=== PATIENT | male | born 1935 | race Caucasian/White ===

== ENCOUNTER → 2017-03-11 | Day surgery (SDC) | payer OTHER ==
[2017-03-09 14:05] VITALS: Ht 165.1 cm; Wt 71.8 kg
[~2017-03-11] VITALS: Ht 165.1 cm; Wt 71.8 kg
[~2017-03-11] MED LIST: ASPI81TA28 PO; CHOL1000 PO; CITA20TA4 PO; DILT1TAB62 PO; LEVO50TA6 PO; LIDOCAINE HCL 2% 2 ML VIAL (20MG/ML) ONE; MAGN250T3 PO; METF-384 PO; OMEG10007 PO; ONDANSETRON INJ 2 MG/ML 2 ML VIAL IV PRN; PROPOFOL IV EMULSION 10 MG/ML 20 ML VIAL IV ONE; SIMV20TA2 PO; SODIUM CHLORIDE 0.9% 500ML 500 ML IV ONE; TAMS0.4C38 PO
--- NOTE | 2017-03-11 10:38 | Endo History and Physical ---
History & Physical Date of Service: Mar 11, 2017. Chief Complaint: Difficulty swallowing Referring Physician: DR UMANZOR History of Present Illness 81-year-old male referred for evaluation of difficulty swallowing. The patient describes having intermittent difficulty with swallowing solids. The symptoms have been progressing over the last 2-3 years. He is never had an upper endoscopy before. Past Surgical History Hx Cardiac Surgery: No Hx Internal Defibrillator: No Hx Pacemaker: No Hx Abdominal Surgery: Yes (APPY) Hx of Implantable Prosthesis: No Hx Post-Op Nausea and Vomiting: No Hx Cancer Surgery: No Hx Thoracic Surgery: No Hx Orthopedic: No Hx Urinary Tract Surgery: Yes (CIRCUMCISION) Family History None Social History Smoking Status: Former Smoker Hx Substance Use: No Hx Alcohol Use: Yes (OCCASIONAL) Allergies Coded Allergies: Penicillins (Verified Allergy, Unknown, HAND SWELLING, 03/11/17) Current Medications Reported Home Medications Medications Dose Route/Sig Max Daily Dose Days Date Category Dose Instructions Aspirin Ec (Aspirin) 81 Mg Tab 81 Mg PO QAM 03/09/17 Reported Vitamin D3 (Cholecalciferol) 1,000 Unit Tab 1 Tab PO QPM 03/09/17 Reported [place]-3 (Fish Oil) 1 Ea Cap 1 Cap PO QAM 03/09/17 Reported Magnesium 250 mg (Magnesium) 1 Tab Tab 1 Tab PO QAM 03/09/17 Reported Citalopram Hydrobromide 20 Mg Tab 1 Tab PO QPM 03/09/17 Reported Diltiazem HCl 60 Mg Tab 1 Tab PO TID 03/09/17 Reported Levothyroxine Sodium 50 Mcg Tab 1 Tab PO 5XWK 03/09/17 Reported MON,TUES,WED,TH,FRI Levothyroxine Sodium 50 Mcg Tab 2 Tabs PO 2XWK 03/09/17 Reported SUN,SAT Zocor (Simvastatin) 20 Mg Tab 0.5 Tab PO QPM 03/09/17 Reported Glucophage (Metformin Hcl) 1,000 Mg Tab 1,000 Mg PO BID 03/09/17 Reported Flomax (Tamsulosin Hcl) 0.4 Mg Cap 0.4 Mg PO QAM 03/09/17 Reported Vital Signs Weight (Kilograms): 71.82 Height (Feet): 5 Height (Inches): 5 Date Time Temp Pulse Resp B/P (MAP) Pulse Ox O2 Delivery O2 Flow Rate FiO2 03/11/17 10:18 36.1 75 20 140/78 (98) 96 Room Air Physical Exam General Appearance: no apparent distress Respiratory/Chest: Auscultation: breath sounds normal Cardiovascular: Heart Auscultation: RRR, murmur Abdomen: Inspection & Palpation: soft Assessment and Plan The patient has a history of solid food dysphagia which is been progressing over the last 2 years. Given the intermittent nature this most likely represents a benign lesion such as a Schatzki's ring. We discussed the risks and benefits to include bleeding, infection, perforation, pain and need for follow-up studies. Plan Upper endoscopy with esophageal dilation
--- NOTE | 2017-03-11 10:59 | Discharge Instructions ---
Endoscopy Patient Instructions Date / Procedure(s) Performed Mar 11, 2017. EGD Allergy Information Coded Allergies: Penicillins (Verified Allergy, Unknown, HAND SWELLING, 03/11/17) Discharge Date / Findings Mar 11, 2017. Esophageal ring (dilated) Medication Instructions Reported Home Medications Medications Dose Route/Sig Max Daily Dose Days Date Category Dose Instructions Aspirin Ec (Aspirin) 81 Mg Tab 81 Mg PO QAM 03/09/17 Reported Vitamin D3 (Cholecalciferol) 1,000 Unit Tab 1 Tab PO QPM 03/09/17 Reported [place]-3 (Fish Oil) 1 Ea Cap 1 Cap PO QAM 03/09/17 Reported Magnesium 250 mg (Magnesium) 1 Tab Tab 1 Tab PO QAM 03/09/17 Reported Citalopram Hydrobromide 20 Mg Tab 1 Tab PO QPM 03/09/17 Reported Diltiazem HCl 60 Mg Tab 1 Tab PO TID 03/09/17 Reported Levothyroxine Sodium 50 Mcg Tab 1 Tab PO 5XWK 03/09/17 Reported MON,TU,WED,,FRI Levothyroxine Sodium 50 Mcg Tab 2 Tabs PO 2XWK 03/09/17 Reported SUN,SAT Zocor (Simvastatin) 20 Mg Tab 0.5 Tab PO QPM 03/09/17 Reported Glucophage (Metformin Hcl) 1,000 Mg Tab 1,000 Mg PO BID 03/09/17 Reported Flomax (Tamsulosin Hcl) 0.4 Mg Cap 0.4 Mg PO QAM 03/09/17 Reported Provider Instructions Activity Restrictions - No exercising or heavy lifting for 24 hours. - Do not drink alcohol the day of the procedure. - Do not drive a car or operate machinery until the day after the procedure. - Do not make any important decisions or sign important papers in 24 hours after the procedure. Following Day: - Return to full activity which may include returning to work/school. Diet Start your diet with liquids and light foods (jello, soup, juice, toast). Then eat your usual diet if not nauseated. Treatment For Common After Affects For mild abdominal pain, bloating, or excessive gas: - Rest - Eat lightly - Lie on right side Follow-Up Information Follow-up with DR UMANZOR as scheduled Follow-up with Gastroenterology as needed Anesthesia Information What You Should Know You have had a procedure that required some medicine to reduce anxiety and discomfort. This treatment is called moderate sedation. After receiving the treatment, you may be sleepy, but you will be able to breathe on your own. The effects of the treatment may last for several hours. Follow these instructions along with Activity/Diet recommendations noted above: * Do NOT do anything where dizziness or clumsiness would be dangerous. * Rest quietly at home today, then you can be up and about tomorrow. * Have a responsible person stay with you the rest of today. * You may have had an I.V. today. If so, you may take the dressing off later today. Recommendations Call your doctor if: * Trouble breathing * Continuous vomiting for more than 24 hours * Temperature above 101 degrees * Severe abdominal pain or bloating * Pain not relieved by pain medicine ordered * There is increased drainage or redness from any incision * A large amount of rectal bleeding greater than 2-3 tablespoons. (If you had a polyp/s removed or have hemorrhoids, a small amount of blood - from the rectum is to be expected.) * You have any unanswered questions or concerns. IN THE EVENT OF A SERIOUS EMERGENCY, GO TO THE NEAREST EMERGENCY ROOM Your discharge instructions were prepared by provider Joceline Romeo. Patient Instructions Signature Page Waldemar Gunter Patient (or Guardian) Signature/Date: I have read and understand the instructions given to me by my caregivers. Caregiver/RN/Doctor Signature/Date: The above-named patient and/or guardian has received patient instructions on this date. + Original Patient Signature Page (only) stays with chart. Please make copy for patient.
--- NOTE | 2017-03-11 11:03 | GI REPORT ---
Procedure Date: 03/11/2017 10:38 AM Procedure: Upper GI endoscopy Indications: Dysphagia Medicines: Monitored Anesthesia Care Complications: No immediate complications. Estimated blood loss: Minimal. Estimated Blood Loss: Estimated blood loss was minimal. Procedure: Pre-Anesthesia Assessment: - Prior to the procedure, a History and Physical was performed, and patient medications, allergies and sensitivities were reviewed. The patient's tolerance of previous anesthesia was reviewed. - The risks and benefits of the procedure and the sedation options and risks were discussed with the patient. All questions were answered and informed consent was obtained. - Patient identification and proposed procedure were verified prior to the procedure by the physician, the nurse and the bilingual interpreter. The procedure was verified in the procedure room. - Pre-procedure physical examination revealed no contraindications to sedation. - ASA Grade Assessment: III - A patient with severe systemic disease. - After reviewing the risks and benefits, the patient was deemed in satisfactory condition to undergo the procedure. - The anesthesia plan was to use monitored anesthesia care (MAC). - Immediately prior to administration of medications, the patient was re-assessed for adequacy to receive sedatives. - The heart rate, respiratory rate, oxygen saturations, blood pressure, adequacy of pulmonary ventilation, and response to care were monitored throughout the procedure. - The physical status of the patient was re-assessed after the procedure. After obtaining informed consent, the endoscope was passed under direct vision. Throughout the procedure, the patient's blood pressure, pulse, and oxygen saturations were monitored continuously. The scope was introduced through the mouth, and advanced to the third part of duodenum. The upper GI endoscopy was accomplished without difficulty. The patient tolerated the procedure well. Findings: A mild Schatzki ring (acquired) was found at the gastroesophageal junction. A guidewire was placed and the scope was withdrawn. Dilation was performed with a Savary dilator with mild resistance at 54 Fr. The endoscope was then reinserted to evaluate the success of the procedure. Estimated blood loss was minimal. The entire examined stomach was normal. The examined duodenum was normal. Impression: - Mild Schatzki ring. Dilated to 54 Fr today. - Normal stomach. - Normal examined duodenum. - No specimens collected. Recommendation: - Discharge patient to home (ambulatory). - Advance diet as tolerated today. Joceline Romeo D.O. Joceline Romeo DO 03/11/2017 11:03:01 AM This report has been signed electronically. Note Initiated On: 03/11/2017 10:38 AM I attest to the content of the Intraoperative Record and orders documented therein, exceptions below
[2017-03-11 11:42] VITALS: BP 130/69; PULSE 68; O2SAT 96
--- NOTE | 2017-03-11 12:30 | Anesthesiology Progress Note ---
Anesthesia Post Op Note Date & Time Mar 11, 2017 at 12:30 Vital Signs Pain Intensity: 0 Vital Signs Past 12 Hours Date Time Temp Pulse Resp B/P (MAP) Pulse Ox O2 Delivery O2 Flow Rate FiO2 03/11/17 11:42 68 20 130/69 (89) 96 Room Air 03/11/17 11:25 67 20 107/49 (68) 95 Room Air 03/11/17 11:06 58 20 89/49 (62) 99 Diffusion Mask 10 03/11/17 10:18 36.1 75 20 140/78 (98) 96 Room Air Notes Mental Status: alert / awake / arousable, participated in evaluation Pt Amnestic to Procedure: Yes Nausea / Vomiting: adequately controlled Pain: adequately controlled Airway Patency, RR, SpO2: stable & adequate BP & HR: stable & adequate Hydration State: stable & adequate Anesthetic Complications: no major complications apparent
== END | disposition home or self-care (01) ==
LOC: C.GI 09:43
PROVIDERS: ATTEND Internal Medicine Gastroenterology
DX: K22.2 Esophageal obstruction (principal); R13.10 Dysphagia, unspecified; Z87.891 Personal history of nicotine dependence; Z79.82 Long term (current) use of aspirin; Z79.899 Other long term (current) drug therapy

== ENCOUNTER 2018-10-09 23:31 | Inpatient (IN) ==
[2018-10-09] MEDS ORDERED: ACETAMINOPHEN 500 MG TAB PO STA (23:52)
[2018-10-09] MEDS ORDERED: ALBUT/IPRATROP 3MG/0.5MG NEB 3 ML VIAL ONE (23:54)
[2018-10-10] MEDS ORDERED: ALBUT/IPRATROP 3MG/0.5MG NEB 3 ML VIAL NEB STA (00:06)
[2018-10-10 00:08] LABS: Basophils # (auto) 0.02 K/uL (0-0.2); Basophils % (auto) 0.2 %; Eosinophils # (auto) 0.02 K/uL (0-0.5); Eosinophils % (auto) 0.2 %; Hematocrit (blood only) 39.3 % (42-52); Immature Granulocytes # (auto) 0.01 K/uL (0.00-0.02); Immature Granulocytes % (auto) 0.1 %; Lymphocytes # (auto) 1.07 K/uL (1.2-3.4); Lymphocytes % (auto) 11.6 %; Mean Corpuscular Hgb Conc 33.1 g/dL (32-36); Mean Corpuscular Volume 95.4 fL (80-100); Mean Platelet Volume 9.6 fL (7.4-10.4); Monocytes # (auto) 0.94 K/uL (0.11-0.59); Monocytes % (auto) 10.2 %; Neutrophils # (auto) 7.15 K/uL (1.4-6.5); Neutrophils % (auto) 77.7 %; Platelet Count 179 K/uL (130-400); RDW Coefficient of Variation 14.6 % (11.5-14.5); RDW Standard Deviation 50.9 fL (36.4-46.3); Red Blood Count 4.12 M/uL (4.7-6.1); White Blood Count 9.21 K/uL (4.8-10.8)
[2018-10-10 00:25] LABS: Alanine Aminotransferase 28 U/L (12-78); Albumin Level 3.2 gm/dl (3.4-5.0); Aspartate Aminotransferase 25 U/L (15-37); BUN Creatinine Ratio 14.2 (10-20); Blood Urea Nitrogen 19 mg/dl (7-18); Calcium 8.4 mg/dl (8.5-10.1); Carbon Dioxide 26 mmol/L (21-32); Chloride 104 mmol/L (98-107); Creatinine Clr Calc Pharmacy 36.9 ml/min; Est GFR (African American) 56.6; Est GFR (Non-African American) 48.8; Glucose 200 mg/dl (70-99); Potassium 4.3 mmol/L (3.5-5.1); Sodium 136 mmol/L (136-145)
[2018-10-10 00:29] LABS: Albumin Globulin Ratio 0.7 (0.9-2); Alkaline Phosphatase 76 U/L (45-117); Bilirubin,Total 0.9 mg/dl (0.2-1); Globulin 4.7 gm/dl (2.5-4.0); NT Pro B Type Natriuretic Pept 209 pg/ml (0-1800); Total Protein 7.9 gm/dl (6.4-8.2); Troponin I < 0.015 ng/ml (0-0.045)
[2018-10-10] MEDS ORDERED: LEVOFLOXACIN/D5W 750 MG/150 ML BAG IV STA (00:41)
[2018-10-10] MEDS ORDERED: AZTREONAM 1,000 MG in DEXTROSE 5% 100 ML IV STA (00:41)
[2018-10-10] MEDS ORDERED: SODIUM CHLORIDE 0.9% 1000ML 1,000 ML IV ONE ×3 (00:48→09:44)
[2018-10-10 00:52] LABS: Appearance Urine Turbid (Clear); Bacteria Urine Automated Negative (Negative); Bilirubin Urine Negative (Negative); Blood Urine 2+ (Negative); Color Urine Yellow; Epithelial Cell Urine Auto 20-30 /lpf (0-5); Glucose Urine UA Trace (Negative); Ketones Urine 1+ (Negative); Leukocyte Esterase Urine 2+ (Negative); Nitrite Urine Negative (Negative); Protein Urine 2+ (Negative); Specific Gravity Urine 1.025 (1.000-1.030); Urobilinogen Urine Negative (Negative); WBC Urine Automated >30 /hpf (0-5)
[2018-10-10] MEDS ORDERED: SODIUM CHLORIDE 0.9% 500 ML IV ONE (01:19)
[2018-10-10] MEDS ORDERED: SODIUM CHLORIDE 0.9% 1000ML 1,000 ML IV SCH ×2 (01:30→08:00)
[2018-10-10 02:06] LABS: Magnesium 1.6 mg/dl (1.8-2.4)
--- NOTE | 2018-10-10 02:09 | History & Physical Report ---
Date of Service October 10, 2018 Assessment & Plan (1) Sepsis: Severe sepsis SIRS plus lactic acid elevation secondary to complicated UTI, history of BPH viral bronchitis rule out flu Aspiration risk hx Schatzki's ring status post dilatation/presbyesophagus as per records hypertension, stable hypothyroidism, euthyroid as of today's TSH DM 2 on oral meds, well controlled as of recent outpatient hemoglobin A1c of 6.18 May 2018 chronic anemia, hemoglobin at baseline, outpatient workup showed vitamin B12 deficiency Bilateral leg swelling rule out DVT Past tobacco abuse Medical Cultures, IV Cefepime, add Vancomycin if with progression of lactic acidosis Follow lactic acid, IVF LE venous Doppler ro DVT Flu PCR Aspiration precautions, swallow eval karel insulin, ISS BG goal 140-180, update hemoglobin A1c PT OT eval DVT prophylaxis. Lovenox subcu Full code History of Present Illness Chief Complaint: Cough, shortness of breath Primary Care Provider: Lashay Terry DO History obtained from patient, family, and records. Medical history significant for hypertension, hyperlipidemia, hypothyroidism, PVD as per records, DM 2 on oral meds, chronic anemia baseline hemoglobin of 13, history Schatzki's ring/presbyesophagus, BPH, past tobacco abuse. Patient noted sinus congestion symptoms later productive of clear sputum. Patient denies chest pain. Patient noted worsening shortness of breath on exertion. Expiratory wheezing as per patient's son who is a respiratory therapist. Some chills at home. Occasional coughing with meals and water intake. Patient not sure about sick contacts. Recent also mentions dysuria symptoms without abdominal pain. No hematuria. Patient had a mechanical fall at home today due to generalized weakness. On and off bilateral leg swelling prior to illness. Patient receive Levaquin and Azactam at the ER for sepsis. Medical History as above Surgical History : Circumcision, appendectomy Family History : Diabetes, uterine cancer Personal/Social history : Past tobacco abuse, occasional EtOH intake, retired [employer] Allergies Allergy/AdvReac Type Severity Reaction Status Date / Time Penicillins Allergy Unknown HAND Verified 03/11/17 10:04 SWELLING Home Medications Home Medications Medication Instructions Recorded Confirmed Type diltiazem HCl 60 mg PO TID 10/10/18 10/10/18 History levothyroxine 50 mcg PO 5XWK 10/10/18 10/10/18 History levothyroxine 100 mcg PO 2XWK 10/10/18 10/10/18 History metformin 1,000 mg PO BID 10/10/18 10/10/18 History simvastatin 10 mg PO PM 10/10/18 10/10/18 History tamsulosin 0.4 mg PO DAILY 10/10/18 10/10/18 History Past Med/Surg History Medical History Diabetes (Chronic) Leg swelling (Chronic) Family History Other No significant family history Social History Preferred Language: Trinidadian Communication Ability: Effective Piece Jobber Required: No Beliefs That Will Affect Care: None Current Living Situation: Spouse Feels Safe at Home: Yes Safety Concerns: Feels Safe At This Time Smoking Status: Former smoker Hx Alcohol Use: No Hx Substance Use: No Review of Systems As per HPI, all 10 systems reviewed, all other ROS negative Physical Exam Vital Signs (Past 24 Hours): Last Vital Signs Temp 38.4 C H 10/09/18 23:35 Pulse 112 H 10/10/18 01:05 Resp 19 10/10/18 01:05 BP 119/76 10/10/18 01:05 Pulse Ox 94 10/10/18 00:40 Physical Exam: GENERAL: Slightly uncomfortable, wane, slightly hard of hearing, no respiratory distress SKIN: Pallor , warm HEENT: Bespectacled, pale palpebral conjunctivae, no ptosis, dry buccal mucosa NECK : Supple, no tenderness CHEST : Decreased breath sounds, occasional expiratory wheeze, no tenderness HEART : Tachycardic , no obvious murmurs ABDOMEN: Some distention, nontender EXTREMITIES : brandon LE swelling R> L, no LE tenderness, no other conspicuous deformities noted NEUROLOGIC : Coherent, no facial asymmetry, no other gross focality except for mild impairment, gait and stance not assessed Results & Data Laboratory Results Laboratory Results WBC 9.21 K/uL (4.8-10.8) 10/09/18 23:52 RBC 4.12 M/uL (4.7-6.1) L 10/09/18 23:52 Hgb 13.0 g/dL (14.0-18.0) L 10/09/18 23:52 Hct 39.3 % (42-52) L 10/09/18 23:52 MCV 95.4 fL (80-100) 10/09/18 23:52 MCH 31.6 pg (25-34) 10/09/18 23:52 MCHC 33.1 g/dL (32-36) 10/09/18 23:52 RDW Std Deviation 50.9 fL (36.4-46.3) H 10/09/18 23:52 RDW Coeff of Rosario 14.6 % (11.5-14.5) H 10/09/18 23:52 Plt Count 179 K/uL (130-400) 10/09/18 23:52 MPV 9.6 fL (7.4-10.4) 10/09/18 23:52 Immature Gran % (Auto) 0.1 % 10/09/18 23:52 Neut % (Auto) 77.7 % 10/09/18 23:52 Lymph % (Auto) 11.6 % 10/09/18 23:52 [place] % (Auto) 10.2 % 10/09/18 23:52 Eos % (Auto) 0.2 % 10/09/18 23:52 Baso % (Auto) 0.2 % 10/09/18 23:52 Immature Gran # (Auto) 0.01 K/uL (0.00-0.02) 10/09/18 23:52 Neut # (Auto) 7.15 K/uL (1.4-6.5) H 10/09/18 23:52 Lymph # (Auto) 1.07 K/uL (1.2-3.4) L 10/09/18 23:52 [place] # (Auto) 0.94 K/uL (0.11-0.59) H 10/09/18 23:52 Eos # (Auto) 0.02 K/uL (0-0.5) 10/09/18 23:52 Baso # (Auto) 0.02 K/uL (0-0.2) 10/09/18 23:52 PT Cancelled 10/09/18 23:52 INR Cancelled 10/09/18 23:52 APTT Cancelled 10/09/18 23:52 PTT Ratio Cancelled 10/09/18 23:52 Sodium 136 mmol/L (136-145) 10/09/18 23:52 Potassium 4.3 mmol/L (3.5-5.1) 10/09/18 23:52 Chloride 104 mmol/L (98-107) 10/09/18 23:52 Carbon Dioxide 26 mmol/L (21-32) 10/09/18 23:52 Anion Gap 6.0 (3-11) 10/09/18 23:52 BUN 19 mg/dl (7-18) H 10/09/18 23:52 Creatinine 1.32 mg/dl (0.6-1.4) 10/09/18 23:52 Est Cr Clr Drug Dosing 36.9 ml/min 10/09/18 23:52 Est GFR ( Amer) 56.6 10/09/18 23:52 Est GFR (Non-Af Amer) 48.8 10/09/18 23:52 BUN/Creatinine Ratio 14.2 (10-20) 10/09/18 23:52 Glucose 200 mg/dl (70-99) H 10/09/18 23:52 POC Lactic Acid Matthew 2.39 mmol/L (0.90-1.70) H 10/09/18 23:56 Calcium 8.4 mg/dl (8.5-10.1) L 10/09/18 23:52 Magnesium 1.6 mg/dl (1.8-2.4) L 10/09/18 23:52 Total Bilirubin 0.9 mg/dl (0.2-1) 10/09/18 23:52 AST 25 U/L (15-37) 10/09/18 23:52 ALT 28 U/L (12-78) 10/09/18 23:52 Alkaline Phosphatase 76 U/L (45-117) 10/09/18 23:52 Troponin I < 0.015 ng/ml (0-0.045) 10/09/18 23:52 NT-Pro-B Natriuret Pep 209 pg/ml (0-1800) 10/09/18 23:52 Total Protein 7.9 gm/dl (6.4-8.2) 10/09/18 23:52 Albumin 3.2 gm/dl (3.4-5.0) L 10/09/18 23:52 Globulin 4.7 gm/dl (2.5-4.0) H 10/09/18 23:52 Albumin/Globulin Ratio 0.7 (0.9-2) L 10/09/18 23:52 TSH 1.950 uIu/ml (0.300-4.500) 10/09/18 23:52 Urine Color Yellow 10/10/18 00:10 Urine Appearance Turbid (Clear) H 10/10/18 00:10 Urine pH 5.0 (4.5-7.5) 10/10/18 00:10 Ur Specific [place] 1.025 (1.000-1.030) 10/10/18 00:10 Urine Protein 2+ (Negative) H 10/10/18 00:10 Urine Glucose (UA) Trace (Negative) H 10/10/18 00:10 Urine Ketones 1+ (Negative) H 10/10/18 00:10 Urine Blood 2+ (Negative) H 10/10/18 00:10 Urine Nitrite Negative (Negative) 10/10/18 00:10 Urine Bilirubin Negative (Negative) 10/10/18 00:10 Urine Urobilinogen Negative (Negative) 10/10/18 00:10 Ur Leukocyte Esterase 2+ (Negative) H 10/10/18 00:10 Urine WBC (Auto) >30 /hpf (0-5) H 10/10/18 00:10 Urine RBC (Auto) 5-10 /hpf (0-4) H 10/10/18 00:10 U Hyaline Cast (Auto) 1-5 /lpf (0-5) 10/10/18 00:10 U Epithel Cells (Auto) 20-30 /lpf (0-5) H 10/10/18 00:10 Urine Bacteria (Auto) Negative (Negative) 10/10/18 00:10 Influenza Type A Ag Neg for Influ A (Neg) 10/10/18 00:10 Influenza Type B Ag Neg for Influ B (Neg) 10/10/18 00:10 Diagnostic Findings Chest x-ray per my interpretation atelectasis EKG as per my interpretation : Rate 115, sinus tachycardia, T wave flattening septal leads (1) Sepsis Sepsis type: sepsis due to unspecified organism Qualified Code(s): A41.9 - Sepsis, unspecified organism
[2018-10-10] MEDS ORDERED: SODIUM CHLORIDE 0.9% 1000ML 1,000 ML IV STA (02:11)
[2018-10-10] MEDS ORDERED: MAGNESIUM SULFATE / D5W 1 GM/100 ML BAG IV ONE (02:11)
[2018-10-10] MEDS ORDERED: DOXYCYCLINE HYCLATE 100 MG in DEXTROSE 5% 100 ML IV STA (02:11)
[2018-10-10] MEDS ORDERED: XOPENEX/ATROVENT 1.25mg/0.5MG NEB COMBO NEB PRN (02:11)
[2018-10-10] MEDS ORDERED: GLUCOSE 40% GEL 15 GM TUBE PO PRN (02:13)
[2018-10-10] MEDS ORDERED: GLUCAGON FOR INJ 1 MG VIAL SQ PRN (02:13)
[2018-10-10] MEDS ORDERED: PROCHLORPERAZINE 5 MG in SYRINGE 4 ML IV PRN (02:13)
[2018-10-10] MEDS ORDERED: ACETAMINOPHEN 325 MG TAB PO PRN (02:13)
[2018-10-10] MEDS ORDERED: INSULIN GLARGINE SOLOSTAR 100 UNITS/ML 3 ML PEN SQ STA (02:13)
[2018-10-10] MEDS ORDERED: DEXTROSE 50% 50 ML SYRINGE IV PRN (02:13)
[2018-10-10] MEDS ORDERED: GLUCOSE 10 TABS/TUBE PO PRN (02:13)
[2018-10-10] MEDS ORDERED: CARBOHYDRATES FOR HYPOGLYCEMIA PO PRN (02:13)
[2018-10-10 02:23] LABS: Influenza A virus by PCR Neg for Influ A (Neg); Influenza B virus by PCR Neg for Influ B (Neg)
[2018-10-10 02:33] LABS: Partial Thromboplastin Ratio 1.1; Partial Thromboplastin Time 28.5 Seconds (21.0-31.0)
[2018-10-10] MEDS: INSULIN ASPART 100 UNITS/ML 3 ML PEN SC SCH ×4 (05:17→18:24)
--- NOTE | 2018-10-10 05:37 | Emergency Department Note ---
Entered by Ilan Andre acting as a scribe for Kimberlyn Bolanos DO History of Present Illness General Chief complaint: Shortness of Breath/Dyspnea Stated complaint: SOB,FALL Time Seen by Provider: 10/09/18 23:36 Source: patient and family (son) History of Present Illness Onset (ago): day(s) 1 Location: chest (shortness of breath) Pain Consistency: + other (worsening) Exacerbated By: + other (exertion) Associated symptoms: + denies other symptoms (abdominal pain), + cough (productive cough with mucous), + fever/chills (positive fever, negative chills) and + other (tiredness, frequent urination); no chest pain The patient is a 83 year old M who presents to the Emergency Room with complaints of worsening shortness of breath starting 1 day ago. The majority of the HPI was provided by the patients son. He states that the patient suffered a fall yesterday. He adds that the patients shortness of breath gets worse with exertion. He notes that the patient has not drank much water today The patient notes that he currently has a productive cough with mucous, fever, tiredness, and frequent urination. The patient denies having chest pain and abdominal pain. The patient adds that he took NyQuil for his fever. The patient states that he has a history of diabetes, leg swelling, and being a former smoker. The patient notes that he takes pills for his leg swelling and diabetes. The patient denies a history of a urinary infection. Home Medications Home Medications Medication Instructions Recorded Confirmed Type diltiazem HCl 60 mg PO TID 10/10/18 10/10/18 History levothyroxine 50 mcg PO 5XWK 10/10/18 10/10/18 History levothyroxine 100 mcg PO 2XWK 10/10/18 10/10/18 History metformin 1,000 mg PO BID 10/10/18 10/10/18 History simvastatin 10 mg PO PM 10/10/18 10/10/18 History tamsulosin 0.4 mg PO DAILY 10/10/18 10/10/18 History Allergies Allergy/AdvReac Type Severity Reaction Status Date / Time Penicillins Allergy Unknown HAND Verified 03/11/17 10:04 SWELLING Past Med/Surg History Medical History Diabetes (Chronic) Leg swelling (Chronic) Family History Other No significant family history Social History Preferred Language: French Communication Ability: Effective 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 and A total of 10 systems reviewed and were otherwise negative Physical Exam Vital Signs Vital Signs - 24 hr 10/09/18 23:35 10/09/18 23:38 10/09/18 23:48 Temperature 38.4 C H Temperature Source Oral Sepsis Recent Fever Within 48 Hours Yes Sepsis Action Taken by Nursing No Action Required Pulse Rate 127 H 118 H Pulse Rate [Left Radial] Pulse Rate from SpO2 Sensor 119 H Pulse Rhythm [Left Radial] Pulse Strength [Left Radial] Respiratory Rate 20 18 Respiratory Effort / Characteristics Non-Labored Spontaneous Respiratory Depth Normal Respiratory Pattern Regular Blood Pressure 163/95 H 163/95 H Blood Pressure [Left Arm] Blood Pressure Mean 117 117 Blood Pressure Mean [Left Arm] Blood Pressure Position Sitting Blood Pressure Position [Left Arm] Pulse Oximetry 91 91 Oxygen Delivery Method Room Air Room Air Oxygen Flow Rate 10/10/18 00:00 10/10/18 00:03 10/10/18 00:27 Temperature Temperature Source Sepsis Recent Fever Within 48 Hours Sepsis Action Taken by Nursing Pulse Rate 113 H 123 H Pulse Rate [Left Radial] Pulse Rate from SpO2 Sensor 113 H 118 H Pulse Rhythm [Left Radial] Pulse Strength [Left Radial] Respiratory Rate 19 21 Respiratory Effort / Characteristics Respiratory Depth Respiratory Pattern Blood Pressure 181/90 H Blood Pressure [Left Arm] Blood Pressure Mean 120 Blood Pressure Mean [Left Arm] Blood Pressure Position Blood Pressure Position [Left Arm] Pulse Oximetry 99 94 Oxygen Delivery Method Room Air Oxygen Flow Rate 10/10/18 00:40 10/10/18 01:05 10/10/18 01:06 Temperature Temperature Source Sepsis Recent Fever Within 48 Hours Sepsis Action Taken by Nursing Pulse Rate 120 H 112 H 114 H Pulse Rate [Left Radial] Pulse Rate from SpO2 Sensor 120 H 115 H Pulse Rhythm [Left Radial] Pulse Strength [Left Radial] Respiratory Rate 19 19 18 Respiratory Effort / Characteristics Respiratory Depth Respiratory Pattern Blood Pressure 119/76 Blood Pressure [Left Arm] Blood Pressure Mean 90 Blood Pressure Mean [Left Arm] Blood Pressure Position Blood Pressure Position [Left Arm] Pulse Oximetry 94 90 Oxygen Delivery Method Oxygen Flow Rate 10/10/18 01:07 10/10/18 01:30 10/10/18 02:00 Temperature Temperature Source Sepsis Recent Fever Within 48 Hours Sepsis Action Taken by Nursing Pulse Rate 102 H 101 H Pulse Rate [Left Radial] Pulse Rate from SpO2 Sensor 106 H 101 H Pulse Rhythm [Left Radial] Pulse Strength [Left Radial] Respiratory Rate 15 19 Respiratory Effort / Characteristics Respiratory Depth Respiratory Pattern Blood Pressure 131/76 134/69 Blood Pressure [Left Arm] Blood Pressure Mean 94 90 Blood Pressure Mean [Left Arm] Blood Pressure Position Blood Pressure Position [Left Arm] Pulse Oximetry 95 94 Oxygen Delivery Method Oxygen Flow Rate 0 10/10/18 02:30 10/10/18 03:30 10/10/18 04:18 Temperature 37.2 C Temperature Source Oral Sepsis Recent Fever Within 48 Hours Sepsis Action Taken by Nursing Pulse Rate 97 H Pulse Rate [Left Radial] 99 H Pulse Rate from SpO2 Sensor 98 H Pulse Rhythm [Left Radial] Regular Pulse Strength [Left Radial] Normal Respiratory Rate 18 20 Respiratory Effort / Characteristics Non-Labored Spontaneous Respiratory Depth Normal Normal Respiratory Pattern Regular Blood Pressure 130/72 Blood Pressure [Left Arm] 159/76 H Blood Pressure Mean 91 Blood Pressure Mean [Left Arm] 103 Blood Pressure Position Blood Pressure Position [Left Arm] Lying Pulse Oximetry 95 97 Oxygen Delivery Method Nasal Cannula Nasal Cannula Nasal Cannula Oxygen Flow Rate 2 1 HEENT: Head - normocephalic and atraumatic Pupils are equal, round, and reactive to light. Extraocular eye muscles are intact, and sclera are anicteric. Nose - moist nasal mucosa without discharge. Mouth - extremely dry. Oropharynx is nonerythematous and there is no tonsillar exudate or edema noted. Neck: Supple; no JVD, nuchal rigidity, cervical lymphadenopathy, or auscultated bruits. Heart: Regular rate and rhythm. There is a normal S1 and S2 with no murmurs, clicks, or gallops appreciated. Lungs: Expiratory wheezing in both lung bases with rales. Abdomen: Soft, completely nontender, nondistended, with good bowel sounds. There are no palpable pulsatile masses or hepatosplenomegaly. There is no guarding, rigidity, or rebound noted. Extremities: No evidence of cyanosis or clubbing. 3+ edema in legs. There are easily palpable peripheral pulses. Skin: warm and dry with poor turgor and no rashes. Course 2342: Past medical records reviewed. The patient was evaluated in room A10, and a complete history and physical examination were performed. A septic protocol was performed. Labs were drawn as above. A twelve-lead EKG was obtained as described above. 0001: Acetaminophen (Tylenol) 1,000 mg PO for fever 0007: Albuterol (Duoneb) 3 ml NEB. The patient will then have a chest x-ray 0038: The patient's urine dip appeared to look infected. This will go for urinalysis 0058: I re-checked the patient and updated him on his test results. The patient is doing well and says that the breathing treatment helped. He is breathing more easily. 0111: Sodium Chloride (Nss 1000ml) 1,000 mls @ 999 mls/hr IV 0113: Levofloxacin IV and aztreonam IV 0120: I reviewed the patient's case with Dr. Neftali Escalona, [facility]. He will evaluate the patient for further management. 0148: I reviewed the rest of the patient's labs with the patient and his family. The patient's vitals are stable. Consultations Consultation #1: I reviewed the patient's case with Dr. Neftali Escalona, [facility]. He will evaluate the patient for further management. Time: 01:20 Administered Medications Sodium Chloride (Nss 1000ml) 1,000 mls @ 100 mls/hr IV .Q10H STA Stop: 10/10/18 12:10 Last Admin: 10/10/18 03:47 Dose: 100 mls/hr Documented by: [id number] Insulin Aspart (Novolog Flexpen) 0 units SC ACHS EDWARD Stop: 11/09/18 03:59 Last Admin: 10/10/18 05:17 Dose: Not Given Documented by: [id number] Cosigned by: [id number] Discontinued Medications Acetaminophen (Tylenol) 1,000 mg PO NOW STA Stop: 10/09/18 23:53 Last Admin: 10/10/18 00:01 Dose: 1,000 mg Documented by: [id number] Albuterol (Duoneb) Confirm Administered Dose 3 ml .ROUTE .STK-MED ONE Stop: 10/09/18 23:55 Last Admin: 10/10/18 00:10 Dose: Not Given Documented by: [id number] Albuterol (Duoneb) 3 ml NEB NOW STA Stop: 10/10/18 00:07 Last Admin: 10/10/18 00:00 Dose: 3 ml Documented by: [id number] Aztreonam 1,000 mg/ Dextrose 110 mls @ 100 mls/hr IV NOW STA Stop: 10/10/18 01:46 Last Infusion: 10/10/18 02:30 Dose: 0 mls/hr Documented by: [id number] Admin: 10/10/18 01:28 Dose: 100 mls/hr Documented by: [id number] Levofloxacin/Dextrose (Levaquin/D5w) 750 mg in 150 mls @ 100 mls/hr IV NOW STA Stop: 10/10/18 02:10 Last Infusion: 10/10/18 02:40 Dose: 0 mls/hr Documented by: [id number] Admin: 10/10/18 01:11 Dose: 100 mls/hr Documented by: [id number] Sodium Chloride (Nss 1000ml) 1,000 mls @ 999 mls/hr IV .Q1H1M ONE Stop: 10/10/18 01:48 Last Infusion: 10/10/18 02:12 Dose: 0 mls/hr Documented by: [id number] Admin: 10/10/18 01:11 Dose: 999 mls/hr Documented by: [id number] Sodium Chloride (Nss) 500 mls @ 999 mls/hr IV .Q31M ONE Stop: 10/10/18 01:49 Last Infusion: 10/10/18 02:25 Dose: 0 mls/hr Documented by: [id number] Admin: 10/10/18 01:56 Dose: 999 mls/hr Documented by: [id number] Doxycycline Hyclate 100 mg/ (Dextrose) 110 mls @ 50 mls/hr IV NOW STA Stop: 10/10/18 04:22 Last Admin: 10/10/18 03:46 Dose: 50 mls/hr Documented by: [id number] Insulin Glargine (Lantus Solostar Pen) 5 units SQ NOW STA Stop: 10/10/18 02:14 Last Admin: 10/10/18 03:49 Dose: 5 units Documented by: [id number] Cosigned by: [id number] Medical Decision Making Differential Diagnosis Differential Diagnosis includes: pneumonia, UTI, sepsis, CHF Medical Records Attestation: I reviewed the patient's medical records. Home Medications Current Medication List: was personally reviewed by me Laboratory Data Attestation: I reviewed the patient's lab results. Result diagrams: 10/09/18 23:52 10/09/18 23:52 Lab Results 10/09/18 10/09/18 10/09/18 Range/Units 23:52 23:52 23:52 WBC 9.21 (4.8-10.8) K/uL RBC 4.12 L (4.7-6.1) M/uL Hgb 13.0 L (14.0-18.0) g/dL Hct 39.3 L (42-52) % MCV 95.4 (80-100) fL MCH 31.6 (25-34) pg MCHC 33.1 (32-36) g/dL RDW Std Deviation 50.9 H (36.4-46.3) fL RDW Coeff of Rosario 14.6 H (11.5-14.5) % Plt Count 179 (130-400) K/uL MPV 9.6 (7.4-10.4) fL Immature Gran % (Auto) 0.1 % Neut % (Auto) 77.7 % Lymph % (Auto) 11.6 % [place] % (Auto) 10.2 % Eos % (Auto) 0.2 % Baso % (Auto) 0.2 % Immature Gran # (Auto) 0.01 (0.00-0.02) K/uL Neut # (Auto) 7.15 H (1.4-6.5) K/uL Lymph # (Auto) 1.07 L (1.2-3.4) K/uL [place] # (Auto) 0.94 H (0.11-0.59) K/uL Eos # (Auto) 0.02 (0-0.5) K/uL Baso # (Auto) 0.02 (0-0.2) K/uL PT Cancelled INR Cancelled APTT Cancelled PTT Ratio Cancelled Sodium 136 (136-145) mmol/L Potassium 4.3 (3.5-5.1) mmol/L Chloride 104 (98-107) mmol/L Carbon Dioxide 26 (21-32) mmol/L Anion Gap 6.0 (3-11) BUN 19 H (7-18) mg/dl Creatinine 1.32 (0.6-1.4) mg/dl Est Cr Clr Drug Dosing 36.9 ml/min Est GFR ( Amer) 56.6 Est GFR (Non-Af Amer) 48.8 BUN/Creatinine Ratio 14.2 (10-20) Glucose 200 H (70-99) mg/dl POC Glucose (70-99) POC Lactic Acid Matthew (0.90-1.70) mmol/L Lactate (0.4-2.0) mmol/L Calcium 8.4 L (8.5-10.1) mg/dl Magnesium 1.6 L (1.8-2.4) mg/dl Total Bilirubin 0.9 (0.2-1) mg/dl AST 25 (15-37) U/L ALT 28 (12-78) U/L Alkaline Phosphatase 76 (45-117) U/L Troponin I < 0.015 (0-0.045) ng/ml NT-Pro-B Natriuret Pep 209 (0-1800) pg/ml Total Protein 7.9 (6.4-8.2) gm/dl Albumin 3.2 L (3.4-5.0) gm/dl Globulin 4.7 H (2.5-4.0) gm/dl Albumin/Globulin Ratio 0.7 L (0.9-2) TSH 1.950 (0.300-4.500) uIu/ml Urine Color Urine Appearance (Clear) Urine pH (4.5-7.5) Ur Specific [place] (1.000-1.030) Urine Protein (Negative) Urine Glucose (UA) (Negative) Urine Ketones (Negative) Urine Blood (Negative) Urine Nitrite (Negative) Urine Bilirubin (Negative) Urine Urobilinogen (Negative) Ur Leukocyte Esterase (Negative) Urine WBC (Auto) (0-5) /hpf Urine RBC (Auto) (0-4) /hpf U Hyaline Cast (Auto) (0-5) /lpf U Epithel Cells (Auto) (0-5) /lpf Urine Bacteria (Auto) (Negative) Influenza Type A Ag (Neg) Influenza Type A (PCR) (Neg) Influenza Type B Ag (Neg) Influenza Type B (PCR) (Neg) 10/09/18 10/10/18 10/10/18 Range/Units 23:56 00:10 00:10 WBC (4.8-10.8) K/uL RBC (4.7-6.1) M/uL Hgb (14.0-18.0) g/dL Hct (42-52) % MCV (80-100) fL MCH (25-34) pg MCHC (32-36) g/dL RDW Std Deviation (36.4-46.3) fL RDW Coeff of Rosario (11.5-14.5) % Plt Count (130-400) K/uL MPV (7.4-10.4) fL Immature Gran % (Auto) % Neut % (Auto) % Lymph % (Auto) % [place] % (Auto) % Eos % (Auto) % Baso % (Auto) % Immature Gran # (Auto) (0.00-0.02) K/uL Neut # (Auto) (1.4-6.5) K/uL Lymph # (Auto) (1.2-3.4) K/uL [place] # (Auto) (0.11-0.59) K/uL Eos # (Auto) (0-0.5) K/uL Baso # (Auto) (0-0.2) K/uL PT INR APTT PTT Ratio Sodium (136-145) mmol/L Potassium (3.5-5.1) mmol/L Chloride (98-107) mmol/L Carbon Dioxide (21-32) mmol/L Anion Gap (3-11) BUN (7-18) mg/dl Creatinine (0.6-1.4) mg/dl Est Cr Clr Drug Dosing ml/min Est GFR ( Amer) Est GFR (Non-Af Amer) BUN/Creatinine Ratio (10-20) Glucose (70-99) mg/dl POC Glucose (70-99) POC Lactic Acid Matthew 2.39 H (0.90-1.70) mmol/L Lactate (0.4-2.0) mmol/L Calcium (8.5-10.1) mg/dl Magnesium (1.8-2.4) mg/dl Total Bilirubin (0.2-1) mg/dl AST (15-37) U/L ALT (12-78) U/L Alkaline Phosphatase (45-117) U/L Troponin I (0-0.045) ng/ml NT-Pro-B Natriuret Pep (0-1800) pg/ml Total Protein (6.4-8.2) gm/dl Albumin (3.4-5.0) gm/dl Globulin (2.5-4.0) gm/dl Albumin/Globulin Ratio (0.9-2) TSH (0.300-4.500) uIu/ml Urine Color Yellow Urine Appearance Turbid H (Clear) Urine pH 5.0 (4.5-7.5) Ur Specific [place] 1.025 (1.000-1.030) Urine Protein 2+ H (Negative) Urine Glucose (UA) Trace H (Negative) Urine Ketones 1+ H (Negative) Urine Blood 2+ H (Negative) Urine Nitrite Negative (Negative) Urine Bilirubin Negative (Negative) Urine Urobilinogen Negative (Negative) Ur Leukocyte Esterase 2+ H (Negative) Urine WBC (Auto) >30 H (0-5) /hpf Urine RBC (Auto) 5-10 H (0-4) /hpf U Hyaline Cast (Auto) 1-5 (0-5) /lpf U Epithel Cells (Auto) 20-30 H (0-5) /lpf Urine Bacteria (Auto) Negative (Negative) Influenza Type A Ag Neg for Influ A (Neg) Influenza Type A (PCR) (Neg) Influenza Type B Ag Neg for Influ B (Neg) Influenza Type B (PCR) (Neg) 10/10/18 10/10/18 10/10/18 Range/Units 00:10 02:12 02:12 WBC (4.8-10.8) K/uL RBC (4.7-6.1) M/uL Hgb (14.0-18.0) g/dL Hct (42-52) % MCV (80-100) fL MCH (25-34) pg MCHC (32-36) g/dL RDW Std Deviation (36.4-46.3) fL RDW Coeff of Rosario (11.5-14.5) % Plt Count (130-400) K/uL MPV (7.4-10.4) fL Immature Gran % (Auto) % Neut % (Auto) % Lymph % (Auto) % [place] % (Auto) % Eos % (Auto) % Baso % (Auto) % Immature Gran # (Auto) (0.00-0.02) K/uL Neut # (Auto) (1.4-6.5) K/uL Lymph # (Auto) (1.2-3.4) K/uL [place] # (Auto) (0.11-0.59) K/uL Eos # (Auto) (0-0.5) K/uL Baso # (Auto) (0-0.2) K/uL PT INR APTT 28.5 PTT Ratio 1.1 Sodium (136-145) mmol/L Potassium (3.5-5.1) mmol/L Chloride (98-107) mmol/L Carbon Dioxide (21-32) mmol/L Anion Gap (3-11) BUN (7-18) mg/dl Creatinine (0.6-1.4) mg/dl Est Cr Clr Drug Dosing ml/min Est GFR ( Amer) Est GFR (Non-Af Amer) BUN/Creatinine Ratio (10-20) Glucose (70-99) mg/dl POC Glucose (70-99) POC Lactic Acid Matthew (0.90-1.70) mmol/L Lactate 2.2 H* (0.4-2.0) mmol/L Calcium (8.5-10.1) mg/dl Magnesium (1.8-2.4) mg/dl Total Bilirubin (0.2-1) mg/dl AST (15-37) U/L ALT (12-78) U/L Alkaline Phosphatase (45-117) U/L Troponin I (0-0.045) ng/ml NT-Pro-B Natriuret Pep (0-1800) pg/ml Total Protein (6.4-8.2) gm/dl Albumin (3.4-5.0) gm/dl Globulin (2.5-4.0) gm/dl Albumin/Globulin Ratio (0.9-2) TSH (0.300-4.500) uIu/ml Urine Color Urine Appearance (Clear) Urine pH (4.5-7.5) Ur Specific [place] (1.000-1.030) Urine Protein (Negative) Urine Glucose (UA) (Negative) Urine Ketones (Negative) Urine Blood (Negative) Urine Nitrite (Negative) Urine Bilirubin (Negative) Urine Urobilinogen (Negative) Ur Leukocyte Esterase (Negative) Urine WBC (Auto) (0-5) /hpf Urine RBC (Auto) (0-4) /hpf U Hyaline Cast (Auto) (0-5) /lpf U Epithel Cells (Auto) (0-5) /lpf Urine Bacteria (Auto) (Negative) Influenza Type A Ag (Neg) Influenza Type A (PCR) Neg for Influ A (Neg) Influenza Type B Ag (Neg) Influenza Type B (PCR) Neg for Influ B (Neg) 10/10/18 Range/Units 03:55 WBC (4.8-10.8) K/uL RBC (4.7-6.1) M/uL Hgb (14.0-18.0) g/dL Hct (42-52) % MCV (80-100) fL MCH (25-34) pg MCHC (32-36) g/dL RDW Std Deviation (36.4-46.3) fL RDW Coeff of Rosario (11.5-14.5) % Plt Count (130-400) K/uL MPV (7.4-10.4) fL Immature Gran % (Auto) % Neut % (Auto) % Lymph % (Auto) % [place] % (Auto) % Eos % (Auto) % Baso % (Auto) % Immature Gran # (Auto) (0.00-0.02) K/uL Neut # (Auto) (1.4-6.5) K/uL Lymph # (Auto) (1.2-3.4) K/uL [place] # (Auto) (0.11-0.59) K/uL Eos # (Auto) (0-0.5) K/uL Baso # (Auto) (0-0.2) K/uL PT INR APTT PTT Ratio Sodium (136-145) mmol/L Potassium (3.5-5.1) mmol/L Chloride (98-107) mmol/L Carbon Dioxide (21-32) mmol/L Anion Gap (3-11) BUN (7-18) mg/dl Creatinine (0.6-1.4) mg/dl Est Cr Clr Drug Dosing ml/min Est GFR ( Amer) Est GFR (Non-Af Amer) BUN/Creatinine Ratio (10-20) Glucose (70-99) mg/dl POC Glucose 192 H (70-99) POC Lactic Acid Matthew (0.90-1.70) mmol/L Lactate (0.4-2.0) mmol/L Calcium (8.5-10.1) mg/dl Magnesium (1.8-2.4) mg/dl Total Bilirubin (0.2-1) mg/dl AST (15-37) U/L ALT (12-78) U/L Alkaline Phosphatase (45-117) U/L Troponin I (0-0.045) ng/ml NT-Pro-B Natriuret Pep (0-1800) pg/ml Total Protein (6.4-8.2) gm/dl Albumin (3.4-5.0) gm/dl Globulin (2.5-4.0) gm/dl Albumin/Globulin Ratio (0.9-2) TSH (0.300-4.500) uIu/ml Urine Color Urine Appearance (Clear) Urine pH (4.5-7.5) Ur Specific [place] (1.000-1.030) Urine Protein (Negative) Urine Glucose (UA) (Negative) Urine Ketones (Negative) Urine Blood (Negative) Urine Nitrite (Negative) Urine Bilirubin (Negative) Urine Urobilinogen (Negative) Ur Leukocyte Esterase (Negative) Urine WBC (Auto) (0-5) /hpf Urine RBC (Auto) (0-4) /hpf U Hyaline Cast (Auto) (0-5) /lpf U Epithel Cells (Auto) (0-5) /lpf Urine Bacteria (Auto) (Negative) Influenza Type A Ag (Neg) Influenza Type A (PCR) (Neg) Influenza Type B Ag (Neg) Influenza Type B (PCR) (Neg) Imaging Data Attestation: I personally reviewed and interpreted this imaging study as follows: My Impression: XR chest 2V: 5 basilar opacities concerning for pneumonia, no cardiomegaly, no previous X-rays for comparison ECG Data Attestation: I personally reviewed and interpreted this ECG as follows: Indication: SOB/dyspnea Rate (beats per minute): 115 Rhythm: sinus tachycardia Findings: no acute ischemic change and no ectopy Blood Pressure Blood Pressure Findings: Normal blood pressure Blood Pressure Disposition: did not require urgent referral MDM Narrative The patient is a 83 year old M who presents to the ED with complaints of worsening shortness of breath starting 1 day ago. Differential diagnosis includes pneumonia, UTI, sepsis, and CHF. The patient's son explains that he has had a productive cough and increasing generalized weakness to the point that he had a fall earlier today. The patient is febrile upon presentation to the emergency department. He has an elevated heart rate and lactic acid. His symptoms are consistent with sepsis. Chest x- ray shows bibasilar findings concerning for pneumonia. Urinalysis also appears to be infected. The patient is hemodynamically stable. He was bolused with IV normal saline solution and given IV antibiotics. [facility] for further management. Impression & Plan Sepsis, Pneumonia, UTI (urinary tract infection) Critical Care Time I have personally spent greater than 45 minutes of critical care time in the direct management of this patient. This includes bedside care, interpretation of diagnostic studies, and testing, discussion with consultants, patient, and family members, and other required patient management activities. This 45 minutes is in excess of all separately billable procedures. Critical Care Time: Yes Total Critical Care Time: 45 Discharge Plan Visit Data *Final* Discharge Date/Time: 10/10/18 03:19 Chief Complaint: Shortness of Breath/Dyspnea Stated Complaint: SOB,FALL ED Provider: Kimberlyn Bolanos Discharge Problem: Sepsis, Pneumonia, UTI (urinary tract infection) Patient Disposition: Admitted As Inpatient Discharge Instructions Interventions: ED Discharge Assessment Last Done: 10/10/18 03:19 Discharge Problem: Sepsis Qualifiers: Sepsis type: sepsis due to unspecified organism Qualified Code(s): A41.9 - Sepsis, unspecified organism Pneumonia Qualifiers: Pneumonia type: due to unspecified organism Laterality: bilateral Lung location: lower lobe of lung Qualified Code(s): J18.1 - Lobar pneumonia, unspecified organism UTI (urinary tract infection) Qualifiers: Urinary tract infection type: site unspecified Hematuria presence: without hematuria Qualified Code(s): N39.0 - Urinary tract infection, site not specified The scribe's documentation has been prepared under my direction and personally reviewed by me in its entirety. I confirm that the note above accurately reflects all work, treatment, procedures, and medical decision making performed by me.
[2018-10-10] MEDS ORDERED: dilTIAZem HCl 60 MG TAB PO STA (06:18)
[2018-10-10] MEDS ORDERED: OLANZAPINE 2.5 MG TAB PO STA (06:19)
[2018-10-10] MEDS ORDERED: MoRPHine SULFATE 2 MG/ML CARP IV STA (06:21)
--- NOTE | 2018-10-10 06:24 | XRay Report ---
XR chest 2V routine HISTORY: 83 years-old Male productive cough acute shortness of breath with cough COMPARISON: None available TECHNIQUE: PA and lateral views of the chest FINDINGS: Cardiomediastinal and hilar silhouettes are within normal limits. Lungs are hyperinflated with diaphr agmatic flattening. There is no pneumothorax, pleural effusion or overt pulmonary edema. Degenerative changes of the shoulders and spine. IMPRESSION: Hyperinflation without acute process. The above report was generated using voice recognition software. It may contain grammatical, syntax o r spelling errors. Electronically signed by: Rubén Pennington M.D. 10/10/2018 6:23 AM
[2018-10-10 06:25] LABS: Basophils # (auto) 0.01 K/uL (0-0.2); Basophils % (auto) 0.1 %; Hematocrit (blood only) 37.5 % (42-52); Hemoglobin 12.2 g/dL (14.0-18.0); Immature Granulocytes # (auto) 0.01 K/uL (0.00-0.02); Immature Granulocytes % (auto) 0.1 %; Lymphocytes # (auto) 0.88 K/uL (1.2-3.4); Lymphocytes % (auto) 11.7 %; Mean Corpuscular Hgb Conc 32.5 g/dL (32-36); Mean Corpuscular Volume 95.4 fL (80-100); Monocytes # (auto) 0.58 K/uL (0.11-0.59); Monocytes % (auto) 7.7 %; Neutrophils # (auto) 6.06 K/uL (1.4-6.5); Neutrophils % (auto) 80.4 %; Platelet Count 149 K/uL (130-400); RDW Coefficient of Variation 14.5 % (11.5-14.5); RDW Standard Deviation 50.9 fL (36.4-46.3); Red Blood Count 3.93 M/uL (4.7-6.1); White Blood Count 7.54 K/uL (4.8-10.8)
[2018-10-10] MEDS ORDERED: PHENAZOPYRIDINE HCL 200 MG TAB PO STA (06:25)
[2018-10-10] MEDS ORDERED: TAMSULOSIN HCL 0.4 MG CAP PO ONE (06:26)
[2018-10-10] MEDS ORDERED: MoRPHine SULFATE 4 MG/ML 1 ML CARP\\VIAL ONE (06:27)
[2018-10-10] MEDS ORDERED: LEVOTHYROXINE SODIUM 100 MCG TABLET PO SCH (06:30)
--- NOTE | 2018-10-10 06:30 | Hospitalist Progress Note ---
Date of Service October 10, 2018 Subjective Made aware by RN of patient agitation, increased dysuria complaints. SBP 160s, cardiac rate 140s Sinus tachycardia on the monitor. Lactic acid 5 as per RN AP Tachycardia secondary to severe sepsis Facilitate scheduled oral Cardizem. Continue Vanco, cefepime, IVF bolus, recheck lactic acid Transfer to medical telemetry to facilitate as needed administration of IV chronotropic agents Will relay to AM provider. Physical Exam Vital Signs (Past 24 Hours): Last Vital Signs Temp 37.2 C 10/10/18 04:18 Pulse 99 H 10/10/18 04:18 Resp 20 10/10/18 04:18 BP 159/76 H 10/10/18 04:18 Pulse Ox 97 10/10/18 04:18
--- NOTE | 2018-10-10 06:51 | Ultrasound Report ---
BILATERAL LOWER EXTREMITY VENOUS DOPPLER HISTORY: Acute pain and swelling of the lower extremities leg swelling COMPARISON STUDY: None. FINDINGS: Study is limited secondary to patient condition. There is normal compressibility, flow, and augmentation within the bilateral lower extremity deep venous systems. IMPRESSION: No sonographic evidence of deep venous thrombosis within the right or left lower extremity. Electronically signed by: Rubén Pennington M.D. 10/10/2018 6:50 AM
[2018-10-10] MEDS ORDERED: VANCOMYCIN HCL 1,750 MG in SODIUM CHLORIDE 0.9% 500 ML IV STA (06:56)
[2018-10-10] MEDS ORDERED: VANCOMYCIN CONSULT ACTIVE PRN ×2 (06:57→17:35)
[2018-10-10 06:58] LABS: Creatinine Clr Calc Pharmacy 46.2 ml/min; Est GFR (African American) 67.6; Est GFR (Non-African American) 58.3; Magnesium 1.4 mg/dl (1.8-2.4)
--- NOTE | 2018-10-10 07:33 | XRay Report ---
XR chest 1V portable HISTORY: 83 years-old Male sob acute shortness of breath COMPARISON: Chest radiographs 10/10/2018 TECHNIQUE: Portable AP view of the chest FINDINGS: Cardiomediastinal and hilar silhouettes are unchanged. Lungs are hyperinflated without pneumothorax, large pleural effusion or overt pulmonary edema. Inferior right lung base is excluded from the field- of-view. Patient is rotated towards the right. Degenerative changes of the shoulders and spine. IMPRESSION: Limited study secondary to positioning. No acute process identified. The above report was generated using voice recognition software. It may contain grammatical, syntax o r spelling errors. Electronically signed by: Rubén Pennington M.D. 10/10/2018 7:31 AM
[2018-10-10] MEDS ORDERED: OLANZapine 10 MG/2.1 ML SDV IM PRN (08:42)
[2018-10-10] MEDS ORDERED: MoRPHine SULFATE 4 MG/ML 1 ML CARP\\VIAL IV PRN (08:42)
[2018-10-10] MEDS: dilTIAZem HCl 60 MG TAB PO SCH ×2 (08:44→22:09)
[2018-10-10] MEDS: CEFEPIME 2,000 MG in SYRINGE 7.5 ML IV SCH (08:48)
[2018-10-10] MEDS ORDERED: ENOXAPARIN INJ 30 MG/0.3 ML SYR SQ SCH (09:00)
[2018-10-10] MEDS ORDERED: CEFEPIME CONSULT ACTIVE PRN (09:00)
[2018-10-10] MEDS ORDERED: CEFEPIME 2,000 MG in SYRINGE 7.5 ML IV ONE (09:15)
[2018-10-10] MEDS ORDERED: dilTIAZem HCl 5 MG/ML 5 ML VIAL IV STA (09:44)
[2018-10-10] MEDS ORDERED: METOPROLOL TARTRATE 1 MG/ML VIAL IV STA (09:47)
[2018-10-10] MEDS ORDERED: ACETAMINOPHEN 65 ML IV ONE (10:00)
[2018-10-10] MEDS ORDERED: TRAMADOL HCL 50 MG TABLET PO ONE (10:30)
[2018-10-10] MEDS: MAGNESIUM SULFATE / D5W 1 GM/100 ML BAG IV SCH ×3 (10:32→13:37)
[2018-10-10] MEDS: ENOXAPARIN INJ 30 MG/0.3 ML SYR SQ SCH (10:33)
[2018-10-10] MEDS: PHENAZOPYRIDINE HCL 100 MG TAB PO PRN (10:48)
--- NOTE | 2018-10-10 11:30 | Hospitalist Progress Note ---
Date of Service October 10, 2018 Assessment & Plan (1) Sepsis: Present on admission with fever, tachycardia and elevated Lactate Possible related to UTI VS viral URI Influenza PCR negative for flu Received Azactam and Levaquin in the ER Starting on Vanco and Cefepime IV Blood cx and urine cx pending Follow up lactic acid Continue IVF (2) Elevated lactic acid level: Lactic acid increased to from 2.3 to 5.3 Possible related to sepsis VS respiratory distress vs metformin Continue IVF Repeat Lactic Acid Follow up blood cx and urine cx Check procalcitonin (3) Tachycardia: Possible related to Sepsis EKG showed Sinus tachycardia Continue IVF Received cardizem 10mg IV and lopressor 5 mg IV Continue PO cardizem TID Continue monitor in tele (4) Respiratory distress: Possible related to Bronchitis Vs aspiration CXR showed no acute process or infiltrate Influenza PCR negative for flu Continue oxygen supplement Continue Neb treatment Will give Prednisone 20mgx1 Continue monitor (5) HTN (hypertension): BP elevated On Cardizem 60mg TID Continue monitor BP (6) Diabetes mellitus: Last Hba1c 6.9 Anion Gap increased to 14 Hold metformin On Insulin sliding scale Continue Lantus while in the hospital Check Hba1c Continue monitor BS (7) Dysuria: (8) Abnormal urinalysis: Possible related to UTI UA positive for Leukocytes only Continue Cefepime IV for now Follow up urine cx Continue phenazopyridine prn for bladder pain (9) Hypothyroidism: TSH stable Continue Levothyroxine t (10) Dysphagia: Hx Schatzki's ring status post dilatation/presbyesophagus as per records Difficulty with solid and liquid Speech therapy on board Made NPO today per speech after fail swallow eval Aspiration precaution Elevated Anion Gap GAP increased to 14 Continue IVF Check BMP Weakness Mostly due to acute illness PT/OT eval Fall precaution BPH Continue Flomax DVT px on Lovenox Code Status FULL CODE Subjective Pt was seen and examined Lying in bed with respiratory distress Pt said that he feels very weak He said that he does have SOB with minimal exertion Denies any chest pain, dizziness and fever Physical Exam Vital Signs (Past 24 Hours): Last Vital Signs Temp 38.6 C H 10/10/18 08:38 Pulse 150 H 10/10/18 10:31 Resp 22 10/10/18 08:38 BP 150/80 H 10/10/18 10:31 Pulse Ox 96 10/10/18 08:38 Physical Exam: General- No acute distress Head- atraumatic Eyes- PERRL, EOMI, ENT- oropharynx clear Neck- supple, no JVD Lungs- +wheezing, Heart- +tachycardia, no murmur Abdomen- normal bowel sounds, soft, nontender Extremities- no calf tenderness, +Edema Neuro- alert, oriented x 3; PERRL, EOMI Skin- warm & dry (1) Sepsis Sepsis type: sepsis due to unspecified organism Qualified Code(s): A41.9 - Sepsis, unspecified organism
[2018-10-10] MEDS: SODIUM CHLORIDE 0.9% 1000ML 1,000 ML IV SCH ×3 (12:38→20:15)
[2018-10-10 12:45] LABS: BUN Creatinine Ratio 11.4 (10-20); Calcium 7.1 mg/dl (8.5-10.1); Est GFR (African American) 46.6; Est GFR (Non-African American) 40.2; Potassium 3.9 mmol/L (3.5-5.1)
[2018-10-10] MEDS ORDERED: predniSONE 20 MG TAB PO ONE (13:00)
[2018-10-10] MEDS ORDERED: LIDOCAINE HCL 2% JELLY 30ML TUBE EXT ONE (15:39)
[2018-10-10] MEDS ORDERED: LIDOCAINE 2% JELLY 5 ML TUBE EXT ONE (16:00)
--- NOTE | 2018-10-10 17:15 | Pharmacy Report ---
Pharmacy Abx Initial Consult - Date of Service October 10, 2018 - Pharmacy Dosing Scope Date of Consult: 10/10/18 Consultation requested by: Dr. Escalona Pharmacy is consulted to initiate Vancomycin and Cefepime IV dosing therapy, order appropriate labs and adjust drug dose/frequency. - Subjective The patient is a 83 year old M admitted on 10/10/18 02:11. - Objective Height: 5 ft 6 in Weight: 76.8 kg Vital Signs (Past 12hrs): Vital Signs Temp Pulse Pulse Resp BP BP BP 10/10/18 15:17 38.0 C H 80 20 128/70 10/10/18 10:31 150 H 150/80 H 10/10/18 09:19 140 H 10/10/18 08:38 38.6 C H 128 H 22 174/84 H 10/10/18 06:12 142 H 24 162/82 H Pulse Ox 10/10/18 15:17 92 10/10/18 10:31 10/10/18 09:19 10/10/18 08:38 96 10/10/18 06:12 Lab Results (24hrs): Laboratory Tests (24 Hours) 10/10/18 10/10/18 10/10/18 12:21 12:14 06:03 WBC Neut # (Auto) Creatinine 1.55 H D 1.14 Est Cr Clr Drug Dosing 34.0 46.2 Procalcitonin 0.51 H 10/10/18 10/09/18 10/09/18 06:03 23:52 23:52 WBC 7.54 9.21 Neut # (Auto) 6.06 7.15 H Creatinine 1.32 Est Cr Clr Drug Dosing 36.9 Procalcitonin Micro Results: 10/10/18 00:54 Blood Culture - Pending Blood 10/10/18 00:10 Urine Culture - Pending Urine,Clean Catch - Assessment & Plan Assessment 83 year old M presenting with worsening SOB and also had a fall a couple days ago. Patient also has productive cough, fever and frequent urination. Abnormal urinalysis. Blood culture X 1 is growing Gram Positive Cocci. Repeat culture pending. Urine culture also pending. Plan Vancomycin and Cefepime for treatment of Complicated UTI Vancomycin IV * Estimated PK Parameters: Vd 0.7 L/kg, Sabino 0.033 hr-1, t1/2 ~21 hr * Loading dose: 1750 mg (23 mg/kg) * Giving a one-time dose of 1000mg at 0700 on 10/11/18. Patient's kidney function is fluctuating so will wait till morning labs to calculate a maintenance dose. * Goal trough level for UTI : ~15 mcg/mL Patient also on Cefepime 2gm Q24 Pharmacy will continue to follow and will adjust dose/frequency as necessary. Thank you.
[2018-10-10] MEDS: IPRATROPIUM BROMIDE NEB SOLN 0.02% 2.5 ML VIAL INH PRN (17:49)
[2018-10-10] MEDS: LEVALBUTEROL 1.25MG/0.5ML NEB INH PRN (17:49)
[2018-10-10] MEDS ORDERED: DOXYCYCLINE HYCLATE 100 MG CAP PO SCH (21:00)
[2018-10-10] MEDS ORDERED: VANCOMYCIN HCL 1,000 MG in SODIUM CHLORIDE 0.9% 250 ML IV SCH (21:00)
[2018-10-10] MEDS: SIMVASTATIN 10 MG TAB PO SCH (22:09)
[2018-10-11] MEDS: INSULIN ASPART 100 UNITS/ML 3 ML PEN SC SCH ×5 (01:18→20:14)
[2018-10-11] MEDS: SODIUM CHLORIDE 0.9% 1000ML 1,000 ML IV SCH ×2 (06:09→16:05)
[2018-10-11 06:23] LABS: Creatinine Clr Calc Pharmacy 47.2 ml/min; Est GFR (African American) 68.3; Est GFR (Non-African American) 58.9
[2018-10-11 06:59] LABS: Estimated Average Glucose 163 mg/dl; Hemoglobin A1C 7.3 % (4.5-5.6)
[2018-10-11] MEDS ORDERED: VANCOMYCIN HCL 1,000 MG in SODIUM CHLORIDE 0.9% 250 ML IV ONE (07:00)
[2018-10-11] MEDS: dilTIAZem HCl 60 MG TAB PO SCH ×3 (08:16→19:53)
[2018-10-11] MEDS: PHENAZOPYRIDINE HCL 100 MG TAB PO PRN (08:16)
[2018-10-11] MEDS: TAMSULOSIN HCL 0.4 MG CAP PO SCH (08:17)
[2018-10-11] MEDS: ENOXAPARIN INJ 30 MG/0.3 ML SYR SQ SCH (08:17)
[2018-10-11] MEDS: CEFEPIME 2,000 MG in SYRINGE 7.5 ML IV SCH (08:22)
[2018-10-11] MEDS: INSULIN GLARGINE SOLOSTAR 100 UNITS/ML 3 ML PEN SC SCH (09:03)
[2018-10-11] MEDS ORDERED: PERFLUTREN LIPID MICROSPHERE (DEFINITY) IV ONE (09:33)
--- NOTE | 2018-10-11 09:33 | Gastrointestinal Consultation ---
Date of Consultation October 11, 2018 Assessment & Plan (1) Cough: Mr. Gunter is experiencing cough and regurgitation of food, occasionally (per family) after swallowing. He has a hx of a mild Schatzi ring with improvement of symptoms after esophageal dilation in 2017. Will consider EGD after respiratory status is optimized. Present on Admission?: Yes (2) Regurgitation of food: Present on Admission?: Yes Supervising Physician Co-Signing Physician Notes I have performed a history and physical examination of this patient and reviewed the electronic medical record. Specifically, on history there was improvement in dysphagia after prior dilation of his Schatzki ring, with some dyspahgia at present. I have discussed the case with MILDRED Damian. The above note reflects my findings, conclusions, and recommendations. Marlo Gaviria MD History of Present Illness Reason for Consultation: Dysphagia Requesting Physician: Dr. Rubalcava Attending Physician: Jyoti Rubalcava MD History of Present Illness Mr. Gunter is an 83 yr old male pt of Dr. Terry with a hx of hypothyroidism, DM, HTN who was brought to the ED due to a fall , cough, SOB, leg edema. He is being treated for sepsis, pneumonia, UTI. He was evaluated by Speech pathology who say that he is able to swallow and there is no evidence of aspiration. However, a few minutes after swallowing, he begins to cough and brought up what he had just swallowed. The pt has memory issues, so I spoke with his Jacquie who told me that he occasionally coughs when "something gets stuck in his throat," but that this does happen very often. He underwent EGD previously with dilation and improvement in symptoms. She says that he is just not doing well and that "everything happened at the same time." EGD was completed on 03/11/[address] Romeo: Mild Schatzki ring. Dilated to 54 Fr today.-Normal stomach.-Normal examined duodenum Allergies Allergy/AdvReac Type Severity Reaction Status Date / Time Penicillins Allergy Unknown HAND Verified 03/11/17 10:04 SWELLING Home Medications Home Medications Medication Instructions Recorded Confirmed Type diltiazem HCl 60 mg PO TID 10/10/18 10/10/18 History levothyroxine 50 mcg PO 5XWK 10/10/18 10/10/18 History levothyroxine 100 mcg PO 2XWK 10/10/18 10/10/18 History metformin 1,000 mg PO BID 10/10/18 10/10/18 History simvastatin 10 mg PO PM 10/10/18 10/10/18 History tamsulosin 0.4 mg PO DAILY 10/10/18 10/10/18 History Patient History Medical History Diabetes (Chronic) Leg swelling (Chronic) Family History Other No significant family history Social History Communication Ability: Effective Beliefs That Will Affect Care: None Current Living Situation: Spouse Feels Safe at Home: Yes Safety Concerns: Feels Safe At This Time Smoking Status: Former smoker Hx Alcohol Use: No Hx Substance Use: No Review of Systems obtained from his by phone Constitutional: + fatigue and + weakness; no fever and no chills Eyes: no eye pain Ear, Nose, Mouth, Throat: no ear pain chronic hearing loss Respiratory: + cough, + chest congestion and + dyspnea on exertion Cardiovascular: no chest pain Gastrointestinal: no abdominal pain distended abdomen per Genitourinary (Male): + difficulty urinating Neurologic: + unsteadiness and + falls; no tremor(s) Endocrine: + fatigue; no polydipsia, no polyphagia and no polyuria Hematologic / Lymphatic: no easy bleeding, no easy bruising and no lymphadenopathy Physical Exam Vital Signs (Past 24 Hours): Last Vital Signs Temp 36.7 C 10/11/18 07:00 Pulse 94 H 10/11/18 07:32 Resp 20 10/11/18 07:00 BP 146/79 H 10/11/18 07:00 Pulse Ox 93 10/11/18 07:00 Constitutional: well developed, well nourished, + ill appearing and + obese; no acute distress Eyes: PERRL, conjunctivae normal, anicteric sclerae ENMT: external ear and nose normal, oropharynx normal Neck: trachea midline, no thyromegaly Respiratory: + labored breathing (very mild, with trying to talk) and + cough (mild, during exam); does not use accessory muscles, not tachypneic and no nasal flaring Auscultation: + wheezes (scattered, throughout) Cardiovascular: RRR, no murmur, no edema Gastrointestinal (Abdomen): normal bowel sounds, soft, nontender, no hepatosplenomegaly Skin: no rashes, warm and dry Neurologic: PERRL, EOMI, accommodation nl, no face palsy, no dysarthria Psychiatric: A+Ox3, euthymic affect Genitourinary: shaw cath in place Results & Data Laboratory Results WBC 7, Hb 12, Hct 37.5, glucose 149, INR 1.1, Na 139, K 3.9, Ch 108, BUN8, Cr 1.55, Glucose 156 Diagnostic Findings CXR 10/09/18 and 10/10/18: hyperinflation but no acute changes Bilat lower ext doppler US w/o abnormalities
[2018-10-11] MEDS: LEVALBUTEROL 1.25MG/0.5ML NEB INH PRN ×2 (11:42→20:24)
[2018-10-11] MEDS: IPRATROPIUM BROMIDE NEB SOLN 0.02% 2.5 ML VIAL INH PRN ×2 (11:42→20:24)
--- NOTE | 2018-10-11 15:03 | Hospitalist Progress Note ---
Date of Service October 11, 2018 Assessment & Plan (1) Sepsis: Present on admission with fever, tachycardia and elevated Lactate Possible related to UTI VS viral URI Influenza PCR negative for flu Received Azactam and Levaquin in the ER On Vanco and Cefepime IV Blood cx positive for strep species and urine cx positive for enterococcus species ID on board and recommended to continue Vanco and cefepime Recommended to get lumbar imaging to r/o any possible back infection since pt complaint of back pain Lactic acid back to normal ECHO showed normal wall of motion, no vegetation or mass. EF btw 65 to 70% Repeat blood cx pending Continue gentle IVF (2) UTI (urinary tract infection): Urine cx grew enterococcus species Continue Cefepime IV for now Continue phenazopyridine prn for bladder pain Will follow final cx (3) Elevated lactic acid level: Lactic acid increased to from 2.3 to 5.3 Possible related to sepsis VS respiratory distress vs metformin Lactic Acid back to normal Elevated procalcitonin Blood cx positive for strep species and urine cx positive for enterococcus species (4) Tachycardia: Possible related to Sepsis EKG showed Sinus tachycardia HR improves Received cardizem 10mg IV and lopressor 5 mg IV Continue PO cardizem TID Continue monitor in tele (5) Respiratory distress: Possible related to Bronchitis Vs aspiration CXR showed no acute process or infiltrate Influenza PCR negative for flu Continue oxygen supplement Continue Neb treatment Will increase prednisone to 40mg Continue monitor (6) HTN (hypertension): BP stable On Cardizem 60mg TID Continue monitor BP (7) Diabetes mellitus: Most recent Hba1c 7.3 Anion Gap closed Continue to hold metformin On Insulin sliding scale Continue Lantus while in the hospital Continue monitor BS (8) Hypothyroidism: TSH stable Continue Levothyroxine (9) Dysphagia: Hx Schatzki's ring status post dilatation/presbyesophagus as per records Difficulty with solid and liquid Speech therapy on board recommended minced and moist diet Aspiration precaution GI on board and plan for EGD on Thursday ELIAZAR Possible related to dehydration Creatinine increased to 1.55 On IVF Creatinine 1.1 today resolved Elevated Anion Gap GAP increased to 14 on admssion received IVF Gap closed Weakness Mostly due to acute illness PT/OT eval Fall precaution BPH Continue Flomax DVT px on Lovenox Code Status FULL CODE Subjective Pt was seen and examined Lying in bed with no distress Pt said that he feels weak He said that he continues to have SOB He continues require oxygen supplement He said that he does not use oxygen at home Denies any chest pain, palpitation, dizziness Physical Exam Vital Signs (Past 24 Hours): Last Vital Signs Temp 37.2 C 10/11/18 12:00 Pulse 90 10/11/18 12:00 Resp 20 10/11/18 12:00 BP 120/71 10/11/18 12:00 Pulse Ox 95 10/11/18 12:00 (1) UTI (urinary tract infection) Hematuria presence: without hematuria Urinary tract infection type: site unspecified Qualified Code(s): N39.0 - Urinary tract infection, site not specified (2) Sepsis Sepsis type: sepsis due to unspecified organism Qualified Code(s): A41.9 - Sepsis, unspecified organism
[2018-10-11] MEDS ORDERED: Nursing to Pharmacy Communication ONE (15:07)
--- NOTE | 2018-10-11 15:11 | Infectious Disease Consult ---
Date of Consultation October 11, 2018 Assessment & Plan (1) Enterococcal sepsis: 83-year-old male with enterococcal sepsis likely from urinary tract focus. Also complaining of back pain so worry about possibility of early disc space infection. Would recommend continuing IV vancomycin until final identification and sensitivities. Would consider further imaging of back to evaluate for possible infection. Will likely need 10-14 days of IV antibiotics. Will follow. (2) UTI (urinary tract infection): History of Present Illness Reason for Consultation: Gram-positive cocci Attending Physician: Jyoti Rubalcava MD History of Present Illness 83-year-old male with history of type 2 diabetes mellitus, hypertension, hy perlipidemia, hypothyroidism, BPH, who was admitted to the hospital yesterday with several day history of progressively worsening dyspnea on exertion, weakness and fatigue, mild dysuria, and chills. He has also been complaining of mild to moderate low back pain. He is now been found to have positive urine culture for enterococcus. Blood cultures now growing streptococcal species, most likely same enterococcus is recovered from urine. Admission lactic acid elevated, pro-calcitonin mildly elevated. Currently being treated with vancomycin and cefepime. No recorded fever. Allergies Allergy/AdvReac Type Severity Reaction Status Date / Time Penicillins Allergy Unknown HAND Verified 03/11/17 10:04 SWELLING Home Medications Home Medications Medication Instructions Recorded Confirmed Type diltiazem HCl 60 mg PO TID 10/10/18 10/10/18 History levothyroxine 50 mcg PO 5XWK 10/10/18 10/10/18 History levothyroxine 100 mcg PO 2XWK 10/10/18 10/10/18 History metformin 1,000 mg PO BID 10/10/18 10/10/18 History simvastatin 10 mg PO PM 10/10/18 10/10/18 History tamsulosin 0.4 mg PO DAILY 10/10/18 10/10/18 History Patient History Medical History Diabetes (Chronic) Leg swelling (Chronic) Family History Other No significant family history Social History Communication Ability: Effective Beliefs That Will Affect Care: None Current Living Situation: Spouse Feels Safe at Home: Yes Safety Concerns: Feels Safe At This Time Smoking Status: Former smoker Hx Alcohol Use: No Hx Substance Use: No Review of Systems Patient with intermittent dysphasia, otherwise all systems were reviewed and are negative except as per HPI Physical Exam Vital Signs (Past 24 Hours): Last Vital Signs Temp 37.2 C 10/11/18 12:00 Pulse 90 10/11/18 12:00 Resp 20 10/11/18 12:00 BP 120/71 10/11/18 12:00 Pulse Ox 95 10/11/18 12:00 Constitutional: WD/WN, vitals as above comfortable; no acute distress Eyes: PERRL, conjunctivae normal, anicteric sclerae ENMT: external ear and nose normal, oropharynx normal Neck: trachea midline, no thyromegaly neck nontender Respiratory: normal respiratory effort, lungs clear to auscultation normal percussion; does not use accessory muscles Cardiovascular: Rate/Rhythm: regular rate and regular rhythm Heart Sounds: normal S1 and normal S2; no gallop, no murmur and no cardiac rub Vessels: normal peripheral pulses; no JVD Gastrointestinal (Abdomen): normal bowel sounds, soft, nontender, no hepatosplenomegaly Musculoskeletal: no cyanosis or clubbing, extremities motor strength 5/5 Spine: thoracic spine normal to inspection and lumbar spine normal to inspection; no cervical spinal tenderness Skin: no rashes, warm and dry normal turgor; no lesions Neurologic: patellar DTR's 2+ bilat, sensation intact no focal motor deficits Psychiatric: A+Ox3, euthymic affect Orientation: cooperative Lymphatic: no cervical or axillary lymphadenopathy no inguinal lymphadeno rashmi Results & Data Laboratory Results BMP 10/11/18 05:27 Creatinine 1.13 D Diagnostic Findings Microbiology 10/10/18 00:10 Urine,Clean Catch Urine Culture - Preliminary Enterococcus species 10/10/18 00:54 Blood Blood Culture - Preliminary Streptococcus species 10/09/18 23:52 Blood Blood Culture - Preliminary Streptococcus species XR chest 1V portable HISTORY: 83 years-old Male sob acute shortness of breath COMPARISON: Chest radiographs 10/10/2018 TECHNIQUE: Portable AP view of the chest FINDINGS: Cardiomediastinal and hilar silhouettes are unchanged. Lungs are hyperinflated without pneumothorax, large pleural effusion or overt pulmonary edema. Inferior right lung base is excluded from the [id number]. Patient is rotated towards the right. Degenerative changes of the shoulders and spine. IMPRESSION: Limited study secondary to positioning. No acute process identified. The above report was generated using voice recognition software. It may contain grammatical, syntax or spelling errors. Electronically signed by: Rubén Pennington M.D. 10/10/2018 7:31 AM (1) UTI (urinary tract infection) Hematuria presence: without hematuria Urinary tract infection type: site unspecified Qualified Code(s): N39.0 - Urinary tract infection, site not specified
[2018-10-11] MEDS: guaiFENesin SUGAR FREE 200 MG/10 ML UDC PO PRN (16:05)
[2018-10-11] MEDS: TRAMADOL HCL 50 MG TABLET PO PRN (16:42)
[2018-10-11] MEDS: SIMVASTATIN 10 MG TAB PO SCH (19:53)
[2018-10-11] MEDS ORDERED: predniSONE 20 MG TAB PO ONE (20:00)
[2018-10-12] MEDS: VANCOMYCIN HCL 1,000 MG in SODIUM CHLORIDE 0.9% 250 ML IV SCH ×2 (00:03→18:20)
[2018-10-12] MEDS: SODIUM CHLORIDE 0.9% 1000ML 1,000 ML IV SCH ×2 (05:19→19:49)
[2018-10-12 06:08] LABS: Hematocrit (blood only) 34.8 % (42-52); Hemoglobin 11.2 g/dL (14.0-18.0); Mean Corpuscular Hgb Conc 32.2 g/dL (32-36); Mean Corpuscular Volume 94.3 fL (80-100); Mean Platelet Volume 9.7 fL (7.4-10.4); Platelet Count 155 K/uL (130-400); RDW Standard Deviation 51.4 fL (36.4-46.3); Red Blood Count 3.69 M/uL (4.7-6.1); White Blood Count 6.94 K/uL (4.8-10.8)
[2018-10-12 06:47] LABS: BUN Creatinine Ratio 17.1 (10-20); Calcium 7.1 mg/dl (8.5-10.1); Creatinine Clr Calc Pharmacy 53.3 ml/min; Est GFR (African American) 78.2; Est GFR (Non-African American) 67.5; Potassium 4.1 mmol/L (3.5-5.1)
[2018-10-12] MEDS: INSULIN ASPART 100 UNITS/ML 3 ML PEN SC SCH ×4 (08:09→20:32)
[2018-10-12] MEDS: dilTIAZem HCl 60 MG TAB PO SCH ×3 (08:10→20:04)
[2018-10-12] MEDS: TAMSULOSIN HCL 0.4 MG CAP PO SCH (08:10)
[2018-10-12] MEDS: ENOXAPARIN INJ 30 MG/0.3 ML SYR SQ SCH (08:11)
[2018-10-12] MEDS: guaiFENesin SUGAR FREE 200 MG/10 ML UDC PO PRN (08:11)
[2018-10-12] MEDS: INSULIN GLARGINE SOLOSTAR 100 UNITS/ML 3 ML PEN SC SCH (08:12)
--- NOTE | 2018-10-12 10:46 | Gastroenterology Progress Note ---
Date of Service October 12, 2018 Assessment & Plan (1) Cough: Mr. Gunter is an 83 yr old male with symptoms of esophageal dysphagia. His respiratory status is much improved today. Will plan for EGD +/- dilation tomorrow. (2) Regurgitation of food: Supervising Physician Co-Signing Physician Notes I have performed a history and physical examination of this patient and reviewed the electronic medical record. Specifically, on physical examination there is no abdominal tenderness. I have discussed the case with MILDRED Damian. The above note reflects my findings, conclusions, and recommendations. Marlo Gaviria MD Subjective Mr. Gunter is an 83 yr old male admitted for a fall. Family tells us he has dysphagia - vomiting up foods several minutes after swallowing. Had these symptoms previously and underwent EGD with dilation of a Schatzki ring with improvement. Constitutional: + fatigue and + weakness; no fever and no chills Respiratory: + cough, + chest congestion and + dyspnea on exertion Genitourinary (Male): + difficulty urinating Neurologic: + unsteadiness and + falls; no tremor(s) Endocrine: + fatigue; no polydipsia, no polyphagia and no polyuria Physical Exam Vital Signs (Past 24 Hours): Last Vital Signs Temp 36.7 C 10/12/18 07:11 Pulse 78 10/12/18 07:37 Resp 18 10/12/18 07:11 BP 147/82 H 10/12/18 07:11 Pulse Ox 92 10/12/18 07:11 Constitutional: well developed, well nourished, + ill appearing and + obese; no acute distress Eyes: PERRL, conjunctivae normal, anicteric sclerae ENMT: external ear and nose normal, oropharynx normal Neck: trachea midline, no thyromegaly Respiratory: normal respiratory effort, lungs clear to auscultation + cough (mild, during exam) Auscultation: no wheezes Cardiovascular: RRR, no murmur, no edema Gastrointestinal (Abdomen): normal bowel sounds, soft, nontender, no hepatosplenomegaly Skin: no rashes, warm and dry Neurologic: PERRL, EOMI, accommodation nl, no face palsy, no dysarthria Psychiatric: A+Ox3, euthymic affect
[2018-10-12] MEDS ORDERED: Nursing to Pharmacy Communication ONE (17:20)
[2018-10-12] MEDS ORDERED: cloNIDine HCl 0.1 MG TAB PO PRN (18:48)
--- NOTE | 2018-10-12 18:51 | Hospitalist Progress Note ---
Date of Service October 12, 2018 Assessment & Plan (1) Sepsis: Present on admission with fever, tachycardia and elevated Lactate Possible related to UTI VS viral URI Influenza PCR negative for flu Received Azactam and Levaquin in the ER On Vanco and Cefepime IV Blood cx and urine cx positive for enterococcus faecalis ID on board and recommended to continue Vanco Waiting for repeat blood blood cx If repeat blood cx positive, will get lumbar spine imaging for infection source (Currently denies any back pain) Recommended to get lumbar imaging to r/o any possible back infection since pt complaint of back pain Lactic acid back to normal ECHO showed normal wall of motion, no vegetation or mass. EF btw 65 to 70% Will need 10-14 days course of IVF abx Follow up with ID for final abx on discharge Continue gentle IVF (2) UTI (urinary tract infection): Urine cx grew enterococcus species Continue IV vanco Continue phenazopyridine prn for bladder pain (3) Elevated lactic acid level: Lactic acid increased to from 2.3 to 5.3 Possible related to sepsis VS respiratory distress vs metformin Lactic Acid back to normal Elevated procalcitonin Blood cx positive for strep species and urine cx positive for enterococcus species (4) Tachycardia: Possible related to Sepsis EKG showed Sinus tachycardia HR improves Received cardizem 10mg IV and lopressor 5 mg IV Continue PO cardizem TID Continue monitor in tele (5) Respiratory distress: Possible related to Bronchitis Vs aspiration CXR showed no acute process or infiltrate Influenza PCR negative for flu Continue oxygen supplement Continue Neb treatment Will continue prednisone 20mg x5 days Clinically improves Continue monitor (6) HTN (hypertension): BP elevated On Cardizem 60mg TID Clonidine prn Continue monitor BP (7) Diabetes mellitus: Most recent Hba1c 7.3 Anion Gap closed Continue to hold metformin On Insulin sliding scale Continue Lantus while in the hospital Continue monitor BS (8) Hypothyroidism: TSH stable Continue Levothyroxine (9) Dysphagia: Hx Schatzki's ring status post dilatation/presbyesophagus as per records Difficulty with solid and liquid Speech therapy on board recommended minced and moist diet Aspiration precaution GI on board and plan for EGD Plan for EGD tomorrow Will make NPO after midnight ELIAZAR Possible related to dehydration Creatinine increased to 1.55 On IVF Creatinine 1.01 today resolved Elevated Anion Gap GAP increased to 14 on admssion received IVF Gap closed Weakness Mostly due to acute illness PT/OT eval Fall precaution BPH Continue Flomax DVT px on Lovenox Code Status FULL CODE Disposition Plan for EGD tomorrow Subjective Pt was seen and examined Sitting in chair with no distress Pt said that he feels much better today He said that his breathing seems to improves He said that he does feels weak He is coughing less now Denies any chest pain, palpitation, dizziness and fever Physical Exam Vital Signs (Past 24 Hours): Last Vital Signs Temp 36.4 C L 10/12/18 18:30 Pulse 92 H 10/12/18 18:30 Resp 18 10/12/18 18:30 BP 177/82 H 10/12/18 18:30 Pulse Ox 92 10/12/18 18:30 Physical Exam: General- No acute distress Head- atraumatic Eyes- PERRL, EOMI, ENT- oropharynx clear Neck- supple, no JVD Lungs- +mild wheezing, Heart- no murmur Abdomen- normal bowel sounds, soft, nontender Extremities- no calf tenderness, +Edema Neuro- alert, oriented x 3; PERRL, EOMI Skin- warm & dry (1) Sepsis Sepsis type: sepsis due to unspecified organism Qualified Code(s): A41.9 - Sepsis, unspecified organism (2) UTI (urinary tract infection) Hematuria presence: without hematuria Urinary tract infection type: site unspecified Qualified Code(s): N39.0 - Urinary tract infection, site not specified
[2018-10-12] MEDS: SIMVASTATIN 10 MG TAB PO SCH (20:04)
[2018-10-12] MEDS: IPRATROPIUM BROMIDE NEB SOLN 0.02% 2.5 ML VIAL INH PRN (20:15)
[2018-10-12] MEDS: LEVALBUTEROL 1.25MG/0.5ML NEB INH PRN (20:15)
[2018-10-13 06:25] LABS: Creatinine Clr Calc Pharmacy 61.9 ml/min; Est GFR (African American) 91.6; Est GFR (Non-African American) 79.1
[2018-10-13] MEDS: INSULIN ASPART 100 UNITS/ML 3 ML PEN SC SCH ×4 (08:41→21:29)
[2018-10-13] MEDS: ENOXAPARIN INJ 30 MG/0.3 ML SYR SQ SCH (08:43)
[2018-10-13] MEDS: TAMSULOSIN HCL 0.4 MG CAP PO SCH (08:43)
[2018-10-13] MEDS: dilTIAZem HCl 60 MG TAB PO SCH ×3 (08:43→21:30)
[2018-10-13] MEDS: INSULIN GLARGINE SOLOSTAR 100 UNITS/ML 3 ML PEN SC SCH (08:44)
--- NOTE | 2018-10-13 09:49 | Anesthesiology Consultation ---
Date of Service October 13, 2018 Assessment & Plan (1) Encounter for pre-operative examination: Chart Review Chart Review: Acceptable Risk for Surgery and Patient NOT seen in Pre Admission Testing Consults Requested none ASA ASA3 Proposed Anesthesia Anesthesia Type: MAC NPO Date Last Intake of Fluids: 10/13/18 Time Last Intake of Fluids: 07:30 Last Intake of Fluids Comment: sip of water with pills Date Last Intake of Solids: 10/12/18 Time Last Intake of Solids: 11:30 History Surgery Operation Date: 10/13/18 09:00 Proposed Procedures p Esophagogastroduodenoscopy Dr Rojas - Marlo Gaviria MD Height/Weight Height: 5 ft 6 in Weight: 78.6 kg Allergies Allergy/AdvReac Type Severity Reaction Status Date / Time Penicillins Allergy Unknown HAND Verified 03/11/17 10:04 SWELLING Medications Home Medications Medication Instructions Recorded Confirmed Last Taken diltiazem HCl 60 mg PO TID 10/10/18 10/10/18 Unknown levothyroxine 50 mcg PO 5XWK 10/10/18 10/10/18 Unknown levothyroxine 100 mcg PO 2XWK 10/10/18 10/10/18 Unknown metformin 1,000 mg PO BID 10/10/18 10/10/18 Unknown simvastatin 10 mg PO PM 10/10/18 10/10/18 Unknown tamsulosin 0.4 mg PO DAILY 10/10/18 10/10/18 Unknown Active Medications Generic Name Dose Route Start Last Admin Trade Name Freq PRN Reason Stop Dose Admin Clonidine HCl 0.1 mg 10/12/18 18:48 10/12/18 20:03 Catapres PO 11/11/18 18:47 0.1 mg TID PRN Administration SBP above 170 Diltiazem HCl 60 mg 10/10/18 14:00 10/13/18 08:43 Cardizem PO 11/09/18 13:59 60 mg TID EDWARD Administration Enoxaparin Sodium 30 mg 10/10/18 09:00 10/13/18 08:43 Lovenox SQ 11/09/18 08:59 30 mg QAM EDWARD Administration Guaifenesin 200 mg 10/10/18 02:13 10/12/18 08:11 Robitussin Sugar Free PO 11/09/18 02:12 200 mg Q6H PRN Administration Cough Sodium Chloride 1,000 mls @ 70 mls/hr 10/10/18 19:15 10/12/18 19:49 Nss 1000ml IV 11/09/18 19:14 70 mls/hr .[id number] EDWARD Administration Vancomycin HCl 1,000 mg/ 270 mls @ 125 mls/hr 10/12/18 00:00 10/12/18 20:32 Sodium Chloride IV 10/20/18 00:00 Infused Q18H EDWARD Infusion Insulin Aspart 0 units 10/11/18 16:30 10/13/18 08:41 Novolog Flexpen SC 11/09/18 17:59 Not Given ACHS EDWARD Insulin Glargine 5 units 10/11/18 09:00 10/13/18 08:44 Lantus Solostar Pen SC 11/10/18 08:59 5 units DAILY EDWARD Administration Ipratropium [place] 0.5 mg 10/10/18 02:11 10/12/18 20:15 Atrovent 0.02% 0.5mg/2.5ml INH 11/09/18 02:10 0.5 mg Q4H PRN Administration sob wheeze Levalbuterol HCl 1.25 mg 10/10/18 02:15 10/12/18 20:15 Xopenex 1.25mg/0.5ml Neb INH 11/09/18 02:14 1.25 mg Q4H PRN Administration Shortness Of Breath Or Wheezing Levothyroxine Sodium 100 mcg 10/10/18 06:30 10/10/18 08:45 Synthroid PO 11/09/18 06:29 100 mcg SuSa@0630 EDWARD Administration Phenazopyridine HCl 100 mg 10/10/18 06:24 10/11/18 08:16 Pyridium PO 11/09/18 06:23 100 mg TID PRN Administration Bladder pain Simvastatin 10 mg 10/10/18 21:00 10/12/18 20:04 Zocor PO 11/09/18 20:59 10 mg HS EDWARD Administration Tamsulosin HCl 0.4 mg 10/11/18 09:00 10/13/18 08:43 Flomax PO 11/10/18 08:59 0.4 mg QAM EDWARD Administration Tramadol HCl 25 mg 10/10/18 02:13 10/11/18 16:42 Ultram PO 11/09/18 02:12 25 mg Q4H PRN Administration Pain Past Medical History Medical History Diabetes (Chronic) Leg swelling (Chronic) Past Family History Family History Other No significant family history Social History Smoking Status: Former smoker Hx Alcohol Use: No Hx Substance Use: No Physical Exam Vital Signs Last Vital Signs Temp 37.2 C 10/13/18 09:41 Pulse 95 H 10/13/18 09:41 Resp 20 10/13/18 09:41 BP 177/93 H 10/13/18 09:41 Pulse Ox 94 10/13/18 09:41 Testing Laboratory Results 10/12/18 05:44 10/13/18 05:37 PT Cancelled 10/09/18 23:52 INR Cancelled 10/09/18 23:52 APTT 28.5 Seconds (21.0-31.0) 10/10/18 02:12 Hemoglobin A1c 7.3 % (4.5-5.6) H 10/10/18 02:12 Urine Color Yellow 10/10/18 00:10 Urine Appearance Turbid (Clear) H 10/10/18 00:10 Urine pH 5.0 (4.5-7.5) 10/10/18 00:10 Ur Specific [place] 1.025 (1.000-1.030) 10/10/18 00:10 Urine Protein 2+ (Negative) H 10/10/18 00:10 Urine Glucose (UA) Trace (Negative) H 10/10/18 00:10 Urine Ketones 1+ (Negative) H 10/10/18 00:10 Urine Nitrite Negative (Negative) 10/10/18 00:10 Ur Leukocyte Esterase 2+ (Negative) H 10/10/18 00:10 Urine WBC (Auto) >30 /hpf (0-5) H 10/10/18 00:10 Urine RBC (Auto) 5-10 /hpf (0-4) H 10/10/18 00:10 U Hyaline Cast (Auto) 1-5 /lpf (0-5) 10/10/18 00:10 U Epithel Cells (Auto) 20-30 /lpf (0-5) H 10/10/18 00:10 Urine Bacteria (Auto) Negative (Negative) 10/10/18 00:10 10/11/18 10:09 Blood Culture - Preliminary Blood No growth to date. 10/11/18 09:58 Blood Culture - Preliminary Blood No growth to date. 10/10/18 00:10 Urine Culture - Final Urine,Clean Catch Enterococcus faecalis 10/10/18 00:54 Blood Culture - Final Blood Enterococcus faecalis 10/09/18 23:52 Blood Culture - Final Blood Enterococcus faecalis 10/13/18 07:40 POC Glucose 141 H
--- NOTE | 2018-10-13 09:50 | History & Physical Report ---
Date of Service October 13, 2018 History of Present Illness Chief Complaint: Dysphagia Primary Care Provider: Lashay Terry DO Dysphagia had improved after dilation of Schatzki ring on prior EGD. Symptoms have returned. Allergies Allergy/AdvReac Type Severity Reaction Status Date / Time Penicillins Allergy Unknown HAND Verified 03/11/17 10:04 SWELLING Home Medications Home Medications Medication Instructions Recorded Confirmed Type diltiazem HCl 60 mg PO TID 10/10/18 10/10/18 History levothyroxine 50 mcg PO 5XWK 10/10/18 10/10/18 History levothyroxine 100 mcg PO 2XWK 10/10/18 10/10/18 History metformin 1,000 mg PO BID 10/10/18 10/10/18 History simvastatin 10 mg PO PM 10/10/18 10/10/18 History tamsulosin 0.4 mg PO DAILY 10/10/18 10/10/18 History Past Med/Surg History Medical History Diabetes (Chronic) Leg swelling (Chronic) Family History Other No significant family history Social History Communication Ability: Effective Beliefs That Will Affect Care: None Current Living Situation: Spouse Feels Safe at Home: Yes Safety Concerns: Feels Safe At This Time Smoking Status: Former smoker Hx Alcohol Use: No Hx Substance Use: No Physical Exam Vital Signs (Past 24 Hours): Last Vital Signs Temp 37.2 C 10/13/18 09:41 Pulse 95 H 10/13/18 09:41 Resp 20 10/13/18 09:41 BP 177/93 H 10/13/18 09:41 Pulse Ox 94 10/13/18 09:41 Constitutional: WD/WN, vitals as above Respiratory: normal respiratory effort, lungs clear to auscultation Cardiovascular: RRR, no murmur, no edema Gastrointestinal (Abdomen): normal bowel sounds, soft, nontender, no hepatosplenomegaly
[2018-10-13] MEDS ORDERED: ATROPINE SULFATE 0.1 MG/ML 10ML SYR IV PRN (09:53)
[2018-10-13] MEDS ORDERED: ePHEDrine sulfate 50 MG/ML AMP IV PRN (09:53)
[2018-10-13] MEDS ORDERED: LIDOCAINE HCL 2% 2 ML VIAL/AMP(20MG/ML) INFIL ONE (10:17)
[2018-10-13] MEDS ORDERED: PROPOFOL IV EMULSION 10 MG/ML 20 ML VIAL IV ONE (10:17)
[2018-10-13] MEDS ORDERED: PHENYLEPHRINE 100MCG/ML 5ML SYR ONE (11:07)
--- NOTE | 2018-10-13 11:13 | GI REPORT ---
Patient Name: Waldemar Gunter Procedure Date: 10/13/2018 10:18 AM Date of : 1935 Admit Type: Inpatient Age: 83 Gender: Male Attending MD: Marlo Gaviria MD Procedure: Upper GI endoscopy Providers: Marlo Gaviria MD Referring MD: Fletcher Bravo M.d. Indications: Dysphagia Medicines: Propofol per Anesthesia Complications: No immediate complications. Estimated blood loss: None. Estimated Blood Loss: Estimated blood loss: none. Procedure: Pre-Anesthesia Assessment: - Prior to the procedure, a History and Physical was performed, and patient medications, allergies and sensitivities were reviewed. The patient's tolerance of previous anesthesia was reviewed. - ASA Grade Assessment: III - A patient with severe systemic disease. After obtaining informed consent, the endoscope was passed under direct vision. Throughout the procedure, the patient's blood pressure, pulse, and oxygen saturations were monitored continuously. The Endoscope was introduced through the mouth, and advanced to the third part of duodenum. The upper GI endoscopy was accomplished with ease. The patient tolerated the procedure well. Findings: A mild Schatzki ring was found at the gastroesophageal junction at 36 cm from the incisors. A guidewire was placed and the scope was withdrawn. Dilation was performed with an [place] dilator with no resistance at 45 Fr and mild resistance at 48 Fr. The dilation site was examined following endoscope reinsertion and showed mild mucosal disruption. A small hiatal hernia was present. The entire examined stomach was normal. The examined duodenum was normal. Impression: - Mild Schatzki ring. Dilated. - Small hiatal hernia. - Normal stomach. - Normal examined duodenum. - No specimens collected. Recommendation: - Observe patient's clinical course. - Return patient to hospital [facility] for ongoing care. Marlo Gaviria M.D. Marlo Gaviria MD 10/13/2018 11:13:14 AM This report has been signed electronically. Note Initiated On: 10/13/2018 10:18 AM Number of Addenda: 0 I attest to the content of the Intraoperative Record and orders documented therein, exceptions below {[id number]}
[2018-10-13] MEDS ORDERED: VANCOMYCIN TROUGH ONE (11:30)
[2018-10-13] MEDS: VANCOMYCIN HCL 1,000 MG in SODIUM CHLORIDE 0.9% 250 ML IV SCH (14:04)
[2018-10-13] MEDS: SODIUM CHLORIDE 0.9% 1000ML 1,000 ML IV SCH (14:11)
--- NOTE | 2018-10-13 14:23 | Anesthesiology Progress Note ---
Date of Service October 13, 2018 Anesthesia Post Procedure Vital Signs Vital Signs: Temp Pulse Pulse Pulse Resp BP Pulse Ox 10/13/18 12:12 81 18 157/80 H 94 10/13/18 11:43 87 16 165/91 H 94 10/13/18 11:28 87 16 139/83 93 10/13/18 11:13 82 16 92/47 L 94 10/13/18 09:41 37.2 C 95 H 20 177/93 H 94 10/13/18 07:24 98 H 10/13/18 07:22 36.6 C 96 H 18 165/87 H 91 10/13/18 05:20 36.7 C 83 20 165/78 H 93 10/13/18 00:45 79 10/12/18 23:34 36.6 C 78 20 127/71 93 10/12/18 21:28 78 129/67 10/12/18 20:15 74 20 94 10/12/18 19:55 91 H 185/85 H 92 10/12/18 19:45 36.8 C 81 20 169/84 H 95 10/12/18 18:30 36.4 C L 92 H 18 177/82 H 92 10/12/18 16:00 99 H 10/12/18 15:15 37.1 C 75 18 168/77 H 92 10/12/18 14:28 76 20 132/79 Notes Mental Status: alert / awake / arousable Patient Amnestic to Procedure: Yes Nausea / Vomiting: adequately controlled Pain: adequately controlled Airway Patency, RR, SpO2: stable & adequate BP & HR: stable & adequate Hydration State: stable & adequate Anesthetic Complications: no major complications apparent and Pt Satisfied with anesthetic care
--- NOTE | 2018-10-13 20:27 | Hospitalist Progress Note ---
Date of Service October 13, 2018 Assessment & Plan (1) Sepsis: Sepsis from Enterococcus faecalis bacteremia hospital antibiotics to date have been Azactam and Levaquin in the ER; then combination of Vancomycin and cefepime, and the Vancomycin alone have transitioned Vancomycin to Ampicillin 2 grams every 6 hours , expect to be on IV antibiotics to 10/21/18 for a total of at least 10 days of IV antibiotics from first negative blood culture on 10/11/18 vitals have been stable sepsis have resolved patient pulled out the peripheral guided ultrasound line which was placed on 10/13/18, will need to revisit buttermaker IV access tomorrow (2) UTI (urinary tract infection): Urine cx grew enterococcus species antibiotic management as above Continue phenazopyridine prn for bladder pain (3) Elevated lactic acid level: Lactic acidosis from infection has resolved acute kidney injury on this admissionhave resolved (4) Tachycardia: tachycardia has resolved Continue PO cardizem TID (5) Respiratory distress: Possible related to Bronchitis Vs aspiration CXR showed no acute process or infiltrate Influenza PCR negative for flu breathing has improved, on room air (6) HTN (hypertension): On Cardizem 60mg TID Clonidine prn (7) Diabetes mellitus: Most recent Hba1c 7.3 Anion Gap closed Continue to hold metformin On Insulin sliding scale Continue Lantus while in the hospital (8) Hypothyroidism: TSH stable Continue Levothyroxine (9) Dysphagia: Hx Schatzki's ring status post dilatation/presbyesophagus as per records Difficulty with solid and liquid GI performed EGD on 10/13/18 and did dilation for mild Schatzki's ring Weakness PT/OT eval Fall precaution BPH Continue Flomax Patient had shaw removed today. appears to be having some urinary retention. have asked nurse to monitor further and possible replace with shaw if urine retention greater than 500 ml DVT px on Lovenox Code Status FULL CODE Subjective Patient had peripheral guided ultrasound line placed but then he pulled it out as per nurse. Patient had shaw removed today. appears to be having some urinary retention. have asked nurse to monitor further and possible replace with shaw if urine retention greater than 500 ml patient appears to be concerned about urination denies abdominal pain. denies problems with breathing Physical Exam Vital Signs (Past 24 Hours): Last Vital Signs Temp 37 C 10/13/18 15:04 Pulse 73 10/13/18 15:04 Resp 18 10/13/18 15:04 BP 144/82 H 10/13/18 15:04 Pulse Ox 94 10/13/18 15:04 Constitutional: uncomfortable Eyes: PERRL, conjunctivae normal, anicteric sclerae EOM intact bilaterally ENMT: external ear and nose normal, oropharynx normal Neck: normal visual inspection and trachea midline Respiratory: normal respiratory effort, lungs clear to auscultation Cardiovascular: Rate/Rhythm: regular rate and regular rhythm Gastrointestinal (Abdomen): normal bowel sounds, soft, nontender, no hepatosplenomegaly Musculoskeletal: Head/Neck/Chest: normocephalic and head atraumatic Neurologic: PERRL, EOMI, accommodation nl, no face palsy, no dysarthria Psychiatric: Orientation: alert (1) UTI (urinary tract infection) Hematuria presence: without hematuria Urinary tract infection type: site unspecified Qualified Code(s): N39.0 - Urinary tract infection, site not specified (2) Sepsis Sepsis type: sepsis due to unspecified organism Qualified Code(s): A41.9 - Sepsis, unspecified organism
[2018-10-13] MEDS: AMPICILLIN 2,000 MG in SODIUM CHLOR 0.9% AD-VAN 100 ML IV SCH (21:25)
[2018-10-13] MEDS: SIMVASTATIN 10 MG TAB PO SCH (21:30)
[2018-10-14] MEDS: AMPICILLIN 2,000 MG in SODIUM CHLOR 0.9% AD-VAN 100 ML IV SCH ×4 (01:35→20:32)
[2018-10-14] MEDS ORDERED: VANCOMYCIN HCL 1,000 MG in SODIUM CHLORIDE 0.9% 250 ML IV SCH (02:00)
[2018-10-14] MEDS: dilTIAZem HCl 60 MG TAB PO SCH ×3 (08:29→20:36)
[2018-10-14] MEDS: INSULIN ASPART 100 UNITS/ML 3 ML PEN SC SCH ×4 (08:29→20:38)
[2018-10-14] MEDS: INSULIN GLARGINE SOLOSTAR 100 UNITS/ML 3 ML PEN SC SCH (08:30)
[2018-10-14] MEDS: TAMSULOSIN HCL 0.4 MG CAP PO SCH (08:30)
[2018-10-14] MEDS: ENOXAPARIN INJ 30 MG/0.3 ML SYR SQ SCH (08:31)
--- NOTE | 2018-10-14 09:36 | Anesthesiology Progress Note ---
Date of Service October 14, 2018 Anesthesia Post Procedure Vital Signs Vital Signs: Temp Pulse Pulse Resp BP BP Pulse Ox 10/14/18 07:19 37.0 C 82 16 172/82 H 93 10/14/18 04:00 36.4 C L 90 18 152/73 H 93 10/14/18 00:00 94 H 10/13/18 23:30 36.8 C 84 18 137/80 93 10/13/18 20:55 36.6 C 95 H 18 165/97 H 93 10/13/18 16:00 82 10/13/18 15:04 37 C 73 18 144/82 H 94 10/13/18 12:12 81 18 157/80 H 94 10/13/18 11:43 87 16 165/91 H 94 10/13/18 11:28 87 16 139/83 93 10/13/18 11:13 82 16 92/47 L 94 10/13/18 09:41 37.2 C 95 H 20 177/93 H 94 Notes Mental Status: alert / awake / arousable and participated in evaluation Nausea / Vomiting: adequately controlled Pain: adequately controlled Airway Patency, RR, SpO2: stable & adequate BP & HR: stable & adequate Hydration State: stable & adequate
--- NOTE | 2018-10-14 17:48 | Hospitalist Progress Note ---
Date of Service October 14, 2018 Assessment & Plan (1) Sepsis: Sepsis from Enterococcus faecalis bacteremia hospital antibiotics to date have been Azactam and Levaquin in the ER; then combination of Vancomycin and cefepime, and the Vancomycin alone have transitioned Vancomycin to Ampicillin 2 grams every 6 hours , expect to be on IV antibiotics to 10/21/18 for a total of at least 10 days of IV antibiotics from first negative blood culture on 10/11/18 vitals have been stable sepsis have resolved patient pulled out the peripheral guided ultrasound line which was placed on 10/13/18 IV team placed midline on 10/14/18 (2) UTI (urinary tract infection): Urine cx grew enterococcus species antibiotic management as above Continue phenazopyridine prn for bladder pain Benign prostate hypertrophy/urinary retention Continue Flomax has urinary retention, currently with sahw (3) Elevated lactic acid level: Lactic acidosis from infection has resolved acute kidney injury on this admission have resolved (4) Tachycardia: ADMISSION tachycardia has resolved Run of ventricular tachycardia noted on 10/14/18 but generally in normal sinus rhythm Continue PO cardizem TID (5) Respiratory distress: Possible related to Bronchitis Vs aspiration CXR showed no acute process or infiltrate Influenza PCR negative for flu breathing has improved, on room air (6) HTN (hypertension): On Cardizem 60mg TID will stop Clonidine prn (7) Diabetes mellitus: Most recent Hba1c 7.3 Anion Gap closed Continue to hold metformin On Insulin sliding scale Continue Lantus while in the hospital (8) Hypothyroidism: TSH stable Continue Levothyroxine (9) Dysphagia: Hx Schatzki's ring status post dilatation/presbyesophagus as per records Difficulty with solid and liquid GI performed EGD on 10/13/18 and did dilation for mild Schatzki's ring Weakness PT/OT evaluations - awaiting a bed to [facility] for extended physical therapy Fall precaution DVT px on Lovenox Code Status FULL CODE Subjective Patient has shaw in place due to urinary retention yesterday Patient also had short run of ventricular tachycardia on late afternoon of 10/14/18 However patient has generally been on normal sinus rhythm Patient had midline placed on 10/14/18 Patient has denied chest pain or palpitations. denies abdominal pain. denies vomiting Physical Exam Vital Signs (Past 24 Hours): Last Vital Signs Temp 36.6 C 10/14/18 14:46 Pulse 77 10/14/18 14:46 Resp 18 10/14/18 14:46 BP 152/80 H 10/14/18 14:46 Pulse Ox 92 10/14/18 14:46 Eyes: PERRL, conjunctivae normal, anicteric sclerae EOM intact bilaterally ENMT: external ear and nose normal, oropharynx normal Neck: normal visual inspection and trachea midline Respiratory: normal respiratory effort, lungs clear to auscultation Cardiovascular: Rate/Rhythm: regular rate and regular rhythm Gastrointestinal (Abdomen): normal bowel sounds, soft, nontender, no hepatosplenomegaly Musculoskeletal: Head/Neck/Chest: normocephalic and head atraumatic Neurologic: PERRL, EOMI, accommodation nl, no face palsy, no dysarthria Psychiatric: Orientation: alert Genitourinary: shaw (1) Sepsis Sepsis type: sepsis due to unspecified organism Qualified Code(s): A41.9 - Sepsis, unspecified organism (2) UTI (urinary tract infection) Hematuria presence: without hematuria Urinary tract infection type: site unspecified Qualified Code(s): N39.0 - Urinary tract infection, site not specified
[2018-10-14] MEDS: SIMVASTATIN 10 MG TAB PO SCH (20:36)
[2018-10-15] MEDS: AMPICILLIN 2,000 MG in SODIUM CHLOR 0.9% AD-VAN 100 ML IV SCH ×3 (01:27→14:20)
[2018-10-15] MEDS ORDERED: VANCOMYCIN TROUGH ONE (05:30)
[2018-10-15] MEDS: TRAMADOL HCL 50 MG TABLET PO PRN (06:03)
[2018-10-15] MEDS: INSULIN ASPART 100 UNITS/ML 3 ML PEN SC SCH ×2 (08:10→12:29)
[2018-10-15] MEDS: TAMSULOSIN HCL 0.4 MG CAP PO SCH (08:11)
[2018-10-15] MEDS: dilTIAZem HCl 60 MG TAB PO SCH ×2 (08:11→14:20)
[2018-10-15] MEDS: ENOXAPARIN INJ 30 MG/0.3 ML SYR SQ SCH (08:12)
[2018-10-15] MEDS: INSULIN GLARGINE SOLOSTAR 100 UNITS/ML 3 ML PEN SC SCH (08:13)
--- NOTE | 2018-10-15 11:18 | Hospitalist Progress Note ---
Date of Service October 15, 2018 Assessment & Plan (1) Sepsis: Sepsis from Enterococcus faecalis bacteremia sepsis have resolved hospital antibiotics to date have been Azactam and Levaquin in the ER; then combination of Vancomycin and cefepime, and the Vancomycin alone have transitioned Vancomycin to Ampicillin 2 grams every 6 hours , expect to be on IV antibiotics to 10/21/18 for a total of 10 days of IV antibiotics from first negative blood culture on 10/11/18 patient pulled out the peripheral guided ultrasound line which was placed on 10/13/18 IV team placed midline on 10/14/18 Patient will be discharged with midline for IV antibiotics of Ampicillin 2 grams every 6 hours expect to be on IV antibiotics to last day of 10/21/18 (2) UTI (urinary tract infection): Urine cx grew enterococcus species antibiotic management as above no further bladder pain and will stop the phenazopyridine prn Benign prostate hypertrophy/urinary retention Continue Flomax has urinary retention, currently with shaw Patient will be discharged with shaw and can have shaw removal by primary care doctor in 4 days for trial of void (3) Elevated lactic acid level: Lactic acidosis from infection has resolved acute kidney injury on this admission have resolved (4) Tachycardia: ADMISSION tachycardia has resolved Run of ventricular tachycardia noted on 10/14/18 but generally in normal sinus rhythm Continue PO cardizem TID heart rate is controlled (5) Respiratory distress: Possible related to Bronchitis Vs aspiration CXR showed no acute process or infiltrate Influenza PCR negative for flu breathing has improved, on room air (6) HTN (hypertension): continue Cardizem 60mg TID (7) Diabetes mellitus: Type 2 diabetes mellitus not on joint terminal attack controller use of insulin Most recent Hba1c 7.3 while in hospital the metformin held and on insulin patient can resume home dose metformin on discharge (8) Hypothyroidism: TSH stable Continue home dose Levothyroxine (9) Dysphagia: Hx Schatzki's ring status post dilatation/presbyesophagus as per records Difficulty with solid and liquid GI performed EGD on 10/13/18 and did dilation for mild Schatzki's ring no further dyspghagia Weakness PT/OT evaluations - awaiting a bed to [facility] for extended physical therapy Fall precaution DVT px on Lovenox Code Status FULL CODE Discharge Diagnosis Sepsis from Enterococcus faecalis bacteremia, UTI (urinary tract infection), Benign prostate hypertrophy/urinary retention, acute kidney injury on this admission have resolved, hypertension, tachycardia (controlled), dysphagia from Schatzki's ring (status post dilatation and dysphagia resolved), Type 2 diabetes mellitus not on jail use of insulin Patient is to be discharged to [facility] Patient will be discharged with midline for IV antibiotics of Ampicillin 2 grams every 6 hours expect to be on IV antibiotics to last day of 10/21/18 Patient will be discharged with shaw and can have shaw removal by primary care doctor in 4 days for trial of void 10/19/2018 11:00 AM Provider Triny Germain MD Department Internal Medicine [facility] 12/15/2018 12:00 PM Provider Lashay Terry DO Department Internal Medicine [facility] Subjective Patient has shaw in place due to urinary retention in hospital Patient also had short run of ventricular tachycardia on late afternoon of 10/14/18. no further runs of tachycardia patient has generally been on normal sinus rhythm Patient had midline placed on 10/14/18 Patient has denied chest pain or palpitations. denies abdominal pain. denies vomiting Physical Exam Vital Signs (Past 24 Hours): Last Vital Signs Temp 36.5 C 10/15/18 07:26 Pulse 89 10/15/18 10:07 Resp 18 10/15/18 07:26 BP 137/77 10/15/18 07:26 Pulse Ox 93 10/15/18 07:26 Eyes: PERRL, conjunctivae normal, anicteric sclerae EOM intact bilaterally ENMT: external ear and nose normal, oropharynx normal Neck: normal visual inspection and trachea midline Respiratory: normal respiratory effort, lungs clear to auscultation Cardiovascular: Rate/Rhythm: regular rate and regular rhythm Gastrointestinal (Abdomen): normal bowel sounds, soft, nontender, no hepatosplenomegaly Musculoskeletal: Head/Neck/Chest: normocephalic and head atraumatic Neurologic: PERRL, EOMI, accommodation nl, no face palsy, no dysarthria Psychiatric: Orientation: alert (1) UTI (urinary tract infection) Hematuria presence: without hematuria Urinary tract infection type: site unspecified Qualified Code(s): N39.0 - Urinary tract infection, site not specified (2) Sepsis Sepsis type: sepsis due to unspecified organism Qualified Code(s): A41.9 - Sepsis, unspecified organism
--- NOTE | 2018-10-15 11:41 | Discharge Summary ---
Date of Service October 15, 2018 Admission HPI Per Admitting Provider History obtained from patient, family, and records. Medical history significant for hypertension, hyperlipidemia, hypothyroidism, PVD as per records, DM 2 on oral meds, chronic anemia baseline hemoglobin of 13, history Schatzki's ring/presbyesophagus, BPH, past tobacco abuse. Patient noted sinus congestion symptoms later productive of clear sputum. Patient denies chest pain. Patient noted worsening shortness of breath on exertion. Expiratory wheezing as per patient's son who is a respiratory therapist. Some chills at home. Occasional coughing with meals and water intake. Patient not sure about sick contacts. Recent also mentions dysuria symptoms without abdominal pain. No hematuria. Patient had a mechanical fall at home today due to generalized weakness. On and off bilateral leg swelling prior to illness. Patient receive Levaquin and Azactam at the ER for sepsis. Admission Exam Per Admitting Provider GENERAL: Slightly uncomfortable, wane, slightly hard of hearing, no respiratory distress SKIN: Pallor , warm HEENT: Bespectacled, pale palpebral conjunctivae, no ptosis, dry buccal mucosa NECK : Supple, no tenderness CHEST : Decreased breath sounds, occasional expiratory wheeze, no tenderness HEART : Tachycardic , no obvious murmurs ABDOMEN: Some distention, nontender EXTREMITIES : brandon LE swelling R> L, no LE tenderness, no other conspicuous deformities noted NEUROLOGIC : Coherent, no facial asymmetry, no other gross focality except for mild impairment, gait and stance not assessed Principal Diagnosis Sepsis from Enterococcus faecalis bacteremia, UTI (urinary tract infection), Benign prostate hypertrophy/urinary retention, acute kidney injury on this admission have resolved, hypertension, tachycardia (controlled), dysphagia from Schatzki's ring (status post dilatation and dysphagia resolved), Type 2 diabetes mellitus not on exterminator termite use of insulin Discharge Exam Eyes PERRL, conjunctivae normal, anicteric sclerae EOM intact bilaterally ENMT external ear and nose normal, oropharynx normal Neck normal visual inspection and trachea midline Respiratory normal respiratory effort, lungs clear to auscultation Cardiovascular Rate/Rhythm: regular rate and regular rhythm Gastrointestinal (Abdomen) normal bowel sounds, soft, nontender, no hepatosplenomegaly Musculoskeletal Head/Neck/Chest: normocephalic and head atraumatic Neurologic PERRL, EOMI, accommodation nl, no face palsy, no dysarthria Psychiatric Orientation: alert Discharge Data Allergies Allergy/AdvReac Type Severity Reaction Status Date / Time Penicillins Allergy Unknown HAND Verified 03/11/17 10:04 SWELLING Consultations 10/10/18 01:46 ED Decision to Admit Stat 10/10/18 17:36 Consult Infectious Diseases Routine 10/11/18 08:00 Consult Gastroenterology Routine Procedures Performed Operation Date: 10/13/18 09:00 Actual Procedures p EGD Dilatation - Marlo Gaviria MD Ordered Studies 10/10/18 02:08 US venous doppler [facility] Urgent Hospital Course (1) Sepsis: Sepsis from Enterococcus faecalis bacteremia sepsis have resolved hospital antibiotics to date have been Azactam and Levaquin in the ER; then combination of Vancomycin and cefepime, and the Vancomycin alone have transitioned Vancomycin to Ampicillin 2 grams every 6 hours , expect to be on IV antibiotics to 10/21/18 for a total of 10 days of IV antibiotics from first negative blood culture on 10/11/18 patient pulled out the peripheral guided ultrasound line which was placed on 10/13/18 IV team placed midline on 10/14/18 Patient will be discharged with midline for IV antibiotics of Ampicillin 2 grams every 6 hours expect to be on IV antibiotics to last day of 10/21/18 (2) UTI (urinary tract infection): Urine cx grew enterococcus species antibiotic management as above no further bladder pain and will stop the phenazopyridine prn Benign prostate hypertrophy/urinary retention Continue Flomax has urinary retention, currently with shaw Patient will be discharged with shaw and can have shaw removal by primary care doctor in 4 days for trial of void (3) Elevated lactic acid level: Lactic acidosis from infection has resolved acute kidney injury on this admission have resolved (4) Tachycardia: ADMISSION tachycardia has resolved Run of ventricular tachycardia noted on 10/14/18 but generally in normal sinus rhythm Continue PO cardizem TID heart rate is controlled (5) Respiratory distress: Possible related to Bronchitis Vs aspiration CXR showed no acute process or infiltrate Influenza PCR negative for flu breathing has improved, on room air (6) HTN (hypertension): continue Cardizem 60mg TID (7) Diabetes mellitus: Type 2 diabetes mellitus not on exterminator termite use of insulin Most recent Hba1c 7.3 while in hospital the metformin held and on insulin patient can resume home dose metformin on discharge (8) Hypothyroidism: TSH stable Continue home dose Levothyroxine (9) Dysphagia: Hx Schatzki's ring status post dilatation/presbyesophagus as per records Difficulty with solid and liquid GI performed EGD on 10/13/18 and did dilation for mild Schatzki's ring no further dyspghagia Weakness PT/OT evaluations - awaiting a bed to [facility] for extended physical therapy Fall precaution DVT px on Lovenox Code Status FULL CODE Discharge Diagnosis Sepsis from Enterococcus faecalis bacteremia, UTI (urinary tract infection), Benign prostate hypertrophy/urinary retention, acute kidney injury on this admission have resolved, hypertension, tachycardia (controlled), dysphagia from Schatzki's ring (status post dilatation and dysphagia resolved), Type 2 diabetes mellitus not on residential use of insulin Patient is to be discharged to [facility] Patient will be discharged with midline for IV antibiotics of Ampicillin 2 grams every 6 hours expect to be on IV antibiotics to last day of 10/21/18 Patient will be discharged with shaw and can have shaw removal by primary care doctor in 4 days for trial of void 10/19/2018 11:00 AM Provider Triny Germain MD Department Internal Medicine [facility] 12/15/2018 12:00 PM Provider Lashay Terry DO Department Internal Medicine [facility] Total Time Total Time Spent Total Time Spent (In Minutes): 40 minutes Total Time Includes: Examination of the Patient, Discharge Planning and Medication Reconciliation Discharge Plan Discharge Items Patient Disposition: Transfer Alf Fac Reason For Visit: SEPSIS Discharge Diagnosis: Sepsis from Enterococcus faecalis bacteremia, UTI (urinary tract infection), Benign prostate hypertrophy/urinary retention, acute kidney injury on this admission have resolved, hypertension, tachycardia (controlled), dysphagia from Schatzki's ring (status post dilatation and dysphagia resolved), Type 2 diabetes mellitus not on exterminator termite use of insulin Condition: Good Discharge Goals: Improve disease control Activity: Resume your previous activity Non-emergency contact: Primary Care Provider Call non-emergency contact if: you have any medication questions Follow-up/Referrals: Lashay Terry DO [Primary Care Provider] - Diet: Carb Consistent or DM2 Diet Texture: Dental soft (bite-sized) Addtl Provider Instructions: Patient is to be discharged to [facility] Patient will be discharged with midline for IV antibiotics of Ampicillin 2 grams every 6 hours expect to be on IV antibiotics to last day of 10/21/18 Patient will be discharged with shaw and can have shaw removal by primary care doctor in 4 days for trial of void 10/19/2018 11:00 AM Provider Triny Germain MD Department Internal Medicine [facility] 12/15/2018 12:00 PM Provider Lashay Terry DO Department Internal Medicine [facility] Prescriptions: Continued diltiazem HCl 60 mg Tablet 60 mg PO TID RF: 0 levothyroxine 50 mcg Tablet 100 mcg PO 2XWK RF: 0 levothyroxine 50 mcg Tablet 50 mcg PO 5XWK RF: 0 simvastatin 20 mg Tablet 10 mg PO PM RF: 0 metformin 1,000 mg Tablet 1,000 mg PO BID RF: 0 tamsulosin 0.4 mg Capsule 0.4 mg PO DAILY RF: 0 Stand-Alone Forms: Anesthesia/Sedation, Adult, [facility] Discharge Orders: Discharge Order (Routine); Ordered 10/15/18 Ordered By: Fletcher Bravo Skilled Items Patient informed of condition?: Yes DNR: No Discharge Level of Care: Skilled Communicable Disease: No Discharge Prognosis: Stable Admission Data Admit Date/Time: 10/10/18 02:11 Attending Provider: Fletcher Bravo Admit Provider: Helder Escalona Primary Care Provider: Lashay Terry Other Providers: Helder Escalona ; Ela Raymundo ; Marlo Gaviria ; IRB Approved Study,Lia Service: Telemetry Medical Other Interventions: Discharge Summary Assessment (RN) Last Done: 10/13/18 12:16
--- NOTE | 2018-10-15 14:59 | Infectious Disease Progress Nt ---
Date of Service October 15, 2018 Assessment & Plan (1) Enterococcal sepsis: 83-year-old male with enterococcal sepsis likely from urinary tract focus. Patient now on IV ampicillin, to complete planned IV course as discussed with hospitalist service. (2) UTI (urinary tract infection): Subjective Patient seen in follow-up for enterococcal sepsis. Feeling better, offering no new complaints today. Remains afebrile. Tolerating antibiotics without apparent difficulty. Review of Systems All systems reviewed & are unremarkable except as noted in HPI & below Physical Exam Vital Signs (Past 24 Hours): Last Vital Signs Temp 36.6 C 10/15/18 11:33 Pulse 88 10/15/18 11:33 Resp 18 10/15/18 11:33 BP 112/66 10/15/18 11:33 Pulse Ox 93 10/15/18 11:33 Constitutional: WD/WN, vitals as above comfortable; no acute distress Eyes: PERRL, conjunctivae normal, anicteric sclerae ENMT: external ear and nose normal, oropharynx normal Neck: trachea midline, no thyromegaly neck nontender Respiratory: normal respiratory effort, lungs clear to auscultation normal percussion; does not use accessory muscles Cardiovascular: Rate/Rhythm: regular rate and regular rhythm Heart Sounds: normal S1 and normal S2; no gallop, no murmur and no cardiac rub Vessels: normal peripheral pulses; no JVD Gastrointestinal (Abdomen): normal bowel sounds, soft, nontender, no hepatosplenomegaly Musculoskeletal: no cyanosis or clubbing, extremities motor strength 5/5 Spine: thoracic spine normal to inspection and lumbar spine normal to inspection; no cervical spinal tenderness Skin: no rashes, warm and dry normal turgor; no lesions Neurologic: patellar DTR's 2+ bilat, sensation intact no focal motor deficits Psychiatric: A+Ox3, euthymic affect Orientation: cooperative Lymphatic: no cervical or axillary lymphadenopathy no inguinal lymphadenopathy Results & Data Diagnostic Findings Microbiology 10/11/18 10:09 Blood Blood Culture - Final No growth 10/11/18 09:58 Blood Blood Culture - Final No growth 10/10/18 00:10 Urine,Clean Catch Urine Culture - Final Enterococcus faecalis 10/10/18 00:54 Blood Blood Culture - Final Enterococcus faecalis 10/09/18 23:52 Blood Blood Culture - Final Enterococcus faecalis (1) UTI (urinary tract infection) Hematuria presence: without hematuria Urinary tract infection type: site unspecified Qualified Code(s): N39.0 - Urinary tract infection, site not specified
== END 2018-10-15 16:48 | DRG 872 ==
LOC: ED 23:31 → 4W 10-10 02:11 → SUATTDRO 10-10 02:11 → 4W 10-10 03:19 → 2N 10-10 07:28
DX: K44.9 Diaphragmatic hernia without obstruction or gangrene; Z79.84 Long term (current) use of oral hypoglycemic drugs; Z88.0 Allergy status to penicillin; J20.8 Acute bronchitis due to other specified organisms; R13.10 Dysphagia, unspecified; N40.1 Benign prostatic hyperplasia with lower urinary tract symptoms; Z87.891 Personal history of nicotine dependence; E11.51 Type 2 diabetes mellitus with diabetic peripheral angiopathy without gangrene; Z51.81 Encounter for therapeutic drug level monitoring; Z79.899 Other long term (current) drug therapy; N39.0 Urinary tract infection, site not specified; I10 Essential (primary) hypertension; M79.89 Other specified soft tissue disorders; E78.5 Hyperlipidemia, unspecified; N17.9 Acute kidney failure, unspecified; R53.1 Weakness; E03.9 Hypothyroidism, unspecified; Z91.81 History of falling; R33.8 Other retention of urine; E87.2 Acidosis; K22.2 Esophageal obstruction; A41.81 Sepsis due to Enterococcus; Z83.3 Family history of diabetes mellitus